=== PATIENT | female | born 1945 | race African-American/Black ===

== ENCOUNTER → 2016-10-24 | Outpatient (CLI) | payer MEDICARE, MEDICAID ==
[2016-10-24 17:05] LABS: ABSOLUTE BASOPHILS # (AUTO) 0.1 10^3/uL (0.0-0.2); ABSOLUTE EOSINOPHILS # (AUTO) 0.1 10^3/uL (0.0-0.6); ABSOLUTE LYMPHOCYTES (AUTO) 1.9 10^3/uL (0.5-4.7); ABSOLUTE MONOCYTES (AUTO) 0.9 10^3/uL (0.1-1.4); ABSOLUTE NEUT (AUTO) 6.6 10^3/uL (1.7-8.2); BASOPHILS % (AUTO) 0.6 % (0-2); EOSINOPHILS % (AUTO) 1.1 % (0-6); HEMATOCRIT 40.1 % (36.0-47.0); HEMOGLOBIN 13.4 g/dL (12.0-15.5); HGB HCT DIFFERENCE 0.1; LYMPHOCYTES % (AUTO) 20.1 % (13-45); MEAN CORPUSCULAR HEMOGLOBIN 29.7 pg (27.0-33.4); MEAN CORPUSCULAR HGB CONC 33.5 g/dL (32.0-36.0); MEAN CORPUSCULAR VOLUME 89 fl (80-97); MONOCYTES % (AUTO) 9.2 % (3-13); RED BLOOD COUNT 4.53 10^6/uL (3.72-5.28); RED CELL DISTRIBUTION WIDTH 16.5 % (11.5-14.0); WHITE BLOOD COUNT 9.6 10^3/uL (4.0-10.5)
[2016-10-24 17:23] LABS: ALANINE AMINOTRANSFERASE 19 U/L (9-52); ALBUMIN 3.4 g/dL (3.5-5.0); ALKALINE PHOSPHATASE 148 U/L (38-126); ANION GAP 9 (5-19); ASPARTATE AMINO TRANSFERASE 16 U/L (14-36); BILIRUBIN,DIRECT 0.3 mg/dL (0.0-0.4); BILIRUBIN,TOTAL 0.6 mg/dL (0.2-1.3); BLOOD UREA NITROGEN 14 mg/dL (7-20); CALCIUM 10.2 mg/dL (8.4-10.2); CARBON DIOXIDE 27 mmol/L (22-30); CHLORIDE 107 mmol/L (98-107); CHOLESTEROL 260.55 mg/dL (0-200); Direct HDL 50 mg/dL (>40); GLUCOSE 178 mg/dL (75-110); TRIGLYCERIDES 110 mg/dL (<150)
[2016-10-24 17:34] LABS: DIRECT LDL 179 mg/dL (<100)
== END ==
LOC: OD 15:38
PROVIDERS: ATTEND Internal Medicine
DX: I10 Essential (primary) hypertension (principal); I69.354 Hemiplegia and hemiparesis following cerebral infarction affecting left non-dominant side; E11.9 Type 2 diabetes mellitus without complications; Z79.899 Other long term (current) drug therapy
CPT/HCPCS: 36415; 80053; 80061; 85025

== ENCOUNTER 2016-10-26 20:48 | Emergency (ER) | payer MEDICARE, MEDICAID ==
--- NOTE | 2016-10-26 21:06 | ER Document Report ---
ED General - General Stated Complaint: ALTERED MENTAL STATUS Time Seen by Provider: 10/26/16 20:55 Notes: Patient is a 71-year-old female who comes emergency department by EMS for chief complaint of altered mental status that started this evening. Patient stopped talking normally, started staring out into space, and was confused for a brief period today. 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 She has not had a fever, vomiting although she is not eating much per daughter at bedside who is patient's primary caregiver. She is full code. TRAVEL OUTSIDE OF THE [place] IN LAST 30 DAYS: No - Related Data Allergies/Adverse Reactions: No Known Allergies Allergy (Verified 12/24/13 21:38) Past Medical History - General Information source: Patient, Relative - Social History Smoking Status: Never Smoker Frequency of alcohol use: None Drug Abuse: None Lives with: Family Family History: Reviewed & Not Pertinent - Past Medical History Cardiac Medical History: Reports: Hx Hypercholesterolemia, Hx Hypertension Neurological Medical History: Reports: Hx Cerebrovascular Accident Endocrine Medical History: Reports: Hx Diabetes Mellitus Type 2 Psychiatric Medical History: Denies: Hx Depression - Immunizations Hx Diphtheria, Pertussis, Tetanus Vaccination: Yes Review of Systems - Review of Systems Constitutional: No symptoms reported EENT: No symptoms reported Cardiovascular: No symptoms reported Respiratory: No symptoms reported Gastrointestinal: No symptoms reported Genitourinary: No symptoms reported Female Genitourinary: No symptoms reported Musculoskeletal: No symptoms reported Skin: No symptoms reported Hematologic/Lymphatic: No symptoms reported Neurological/Psychological: See HPI Physical Exam - Vital signs Vitals: Resp Pulse Ox 14 97 10/26/16 21:04 10/26/16 21:04 Interpretation: Normal - General General appearance: Appears well, Alert In distress: None - HEENT Head: Normocephalic, Atraumatic Eyes: Normal Extraocular movements intact: Yes Eyelashes: Normal Pupils: PERRL Mucous membranes: Normal Pharynx: Normal Neck: Normal - Respiratory Respiratory status: No respiratory distress Chest status: Nontender Breath sounds: Normal Chest palpation: Normal - Cardiovascular Rhythm: Regular Heart sounds: Normal auscultation Murmur: No - Abdominal Inspection: Normal Distension: No distension Bowel sounds: Normal Tenderness: Nontender Organomegaly: No organomegaly - Back Back: Normal, Nontender - Extremities General upper extremity: Normal inspection, Nontender, Normal ROM General lower extremity: Normal inspection, Nontender, Normal color, Normal ROM , Normal temperature, Normal weight bearing. No: Cynthia's sign - Neurological Neuro grossly intact: Yes Cognition: Normal Orientation: AAOx4 Charlotte Coma Scale Eye Opening: Spontaneous Charlotte Coma Scale Verbal: Oriented Chi Coma Scale Motor: Obeys Commands Chi Coma Scale Total: 15 Speech: Normal Motor strength normal: RUE, LLE, RLE. No: LUE Additional motor exam normals: Equal cardiovascular invasive specialist Sensory: Normal - Psychological Associated symptoms: Normal affect, Normal mood - Skin Skin Temperature: Warm Skin Moisture: Dry Skin Color: Normal Course - Re-evaluation Re-evalutation: On my examination patient is oriented, smiling, cooperative. She cooperates with a normal neurological exam other than having some muscular difficulties with her forearms and a left sided deficit which is chronic. She has a soft abdomen, clear lungs, no nuchal rigidity. She denies any current symptoms. CAT scan of the head was performed because of reported altered mental status, shows no acute abnormality. CBC, chemistry unremarkable. Urinalysis indicates urinary tract infection. No hypotension, fever, or leukocytosis. Patient does have some borderline tachycardia. I discussed admission to the hospital for transient altered mental status earlier and urinary tract infection with borderline tachycardia. I discussed all details of her workup and examination. Patient refuses. She states she feels great and she wants to go home. Family states that they want to take her home as well. They agree they will follow-up with her provider in 2-3 days, patient was given a dose of Rocephin here, they state that they will return if she becomes confused again, she developed a fever, or if any other concerning symptoms develop. Based on this patient was discharged home. - Vital Signs Vital signs: Temp Pulse Resp BP Pulse Ox 98.6 F 16 162/92 H 95 10/26/16 21:05 10/27/16 00:00 10/27/16 00:57 10/27/16 00:55 - Laboratory Result Diagrams: 10/26/16 21:19 10/26/16 21:19 Laboratory results interpreted by me: 10/26/16 10/26/16 10/26/16 21:19 21:19 21:25 RDW 16.3 H Potassium 3.5 L Chloride 110 H Est GFR ( Amer) 54 L Est GFR (Non-Af Amer) 45 L Glucose 153 H Albumin 3.0 L Urine Protein 100 H Ur Leukocyte Esterase LARGE H Discharge - Discharge Clinical Impression: Transient alteration of awareness Urinary tract infection Qualifiers: Urinary tract infection type: site unspecified Hematuria presence: without hematuria Qualified Code(s): N39.0 - Urinary tract infection, site not specified Condition: Stable Disposition: HOME, SELF-CARE Additional Instructions: The workup shows a urinary tract infection but no concerning abnormalities are noted otherwise. Give the antibiotics as directed. Follow-up with her provider in the next 2-3 days. Return to the emergency department for any concerning or worsening symptoms including fever, confusion, vomiting, etc. Prescriptions: Cephalexin Monohydrate [Keflex 500 mg Capsule] 500 mg PO BID #14 capsule Referrals: KARISSA ATKINSON MD [Primary Care Provider] - Follow up as needed
[2016-10-26 21:30] LABS: ABSOLUTE BASOPHILS # (AUTO) 0.1 10^3/uL (0.0-0.2); ABSOLUTE EOSINOPHILS # (AUTO) 0.1 10^3/uL (0.0-0.6); ABSOLUTE LYMPHOCYTES (AUTO) 2.1 10^3/uL (0.5-4.7); ABSOLUTE MONOCYTES (AUTO) 0.8 10^3/uL (0.1-1.4); ABSOLUTE NEUT (AUTO) 4.8 10^3/uL (1.7-8.2); BASOPHILS % (AUTO) 1.1 % (0-2); EOSINOPHILS % (AUTO) 0.9 % (0-6); HEMATOCRIT 36.2 % (36.0-47.0); HEMOGLOBIN 12.3 g/dL (12.0-15.5); HGB HCT DIFFERENCE 0.7; LYMPHOCYTES % (AUTO) 26.5 % (13-45); MEAN CORPUSCULAR HEMOGLOBIN 30.1 pg (27.0-33.4); MEAN CORPUSCULAR HGB CONC 33.9 g/dL (32.0-36.0); MEAN CORPUSCULAR VOLUME 89 fl (80-97); MONOCYTES % (AUTO) 10.1 % (3-13); RED BLOOD COUNT 4.08 10^6/uL (3.72-5.28); RED CELL DISTRIBUTION WIDTH 16.3 % (11.5-14.0); SEGMENTED NEUTROPHILS % (AUTO) 61.4 % (42-78); WHITE BLOOD COUNT 7.8 10^3/uL (4.0-10.5)
[2016-10-26 21:42] LABS: ALANINE AMINOTRANSFERASE 15 U/L (9-52); ALKALINE PHOSPHATASE 119 U/L (38-126); ANION GAP 11 (5-19); ASPARTATE AMINO TRANSFERASE 17 U/L (14-36); BILIRUBIN,DIRECT 0.4 mg/dL (0.0-0.4); BILIRUBIN,TOTAL 0.5 mg/dL (0.2-1.3); BLOOD UREA NITROGEN 19 mg/dL (7-20); CALCIUM 9.6 mg/dL (8.4-10.2); CARBON DIOXIDE 24 mmol/L (22-30); CHLORIDE 110 mmol/L (98-107); CREATINE KINASE 66 U/L (30-135); CREATININE RESULT 1.18 mg/dL (0.52-1.25); GLUCOSE 153 mg/dL (75-110); POTASSIUM 3.5 mmol/L (3.6-5.0); SODIUM 144.9 mmol/L (137-145); TOTAL PROTEIN 6.7 g/dL (6.3-8.2)
[2016-10-26 21:47] LABS: APPEARANCE,URINE CLOUDY; BILIRUBIN,URINE NEGATIVE (NEGATIVE); GLUCOSE, URINE NEGATIVE (NEGATIVE); KETONES,URINE NEGATIVE (NEGATIVE); LEUKOCYTE ESTERASE,URINE LARGE (NEGATIVE); NITRITE,URINE NEGATIVE (NEGATIVE); PROTEIN,URINE 100 mg/dL (NEGATIVE); UROBILINOGEN,URINE NEGATIVE mg/dL (<2.0)
[2016-10-26 21:54] LABS: CREATINE KINASE MB 0.76 ng/mL (<4.55); TROPONIN I 0.012 ng/mL
[2016-10-26 22:20] LABS: URINE BARBITURATES SCREEN NEGATIVE; URINE METHADONE SCREEN NEGATIVE; URINE OPIATES LOW NEGATIVE; URINE PHENCYCLIDINE SCREEN NEGATIVE
--- NOTE | 2016-10-26 22:25 | RADIOLOGY REPORT (SQ) ---
EXAM DESCRIPTION: CT HEAD WITHOUT COMPLETED DATE/TIME: 10/26/2016 10:01 pm REASON FOR STUDY: altered mental status COMPARISON: 06/03/2015 and 06/02/2015 TECHNIQUE: Axial images acquired through the brain without intravenous contrast. Images reviewed wi th bone, brain and subdural windows. Images stored on PACS. All CT scanners at this facility use dose modulation, iterative reconstruction, and/or weight based d osing when appropriate to reduce radiation dose to as low as reasonably achievable (ALARA). [facility]: Dose Right [facility]: CareDose [facility]: Dose Right [facility]: Teradose 4D [facility]: Smart Teneros RADIATION DOSE: Up-to-date CT equipment and radiation dose reduction techniques were employed. CTDIv ol: 64.6 mGy. DLP: 1163 mGy-cm.mGy. LIMITATIONS: None. FINDINGS: VENTRICLES: Prominent. CEREBRUM: No masses. No hemorrhage. No midline shift. Areas of low density in the white matter mos t likely due to chronic micro-vascular ischemic change. No evidence for acute infarction. CEREBELLUM: No masses. No hemorrhage. No alteration of density. No evidence for acute infarction. EXTRAAXIAL SPACES: Age-related involutional change. No fluid collections. No masses. ORBITS AND GLOBE: No intra- or extraconal masses. Normal contour of globe without masses. CALVARIUM: No fracture. PARANASAL SINUSES: No fluid or mucosal thickening. SOFT TISSUES: No mass or hematoma. OTHER: No other significant finding. IMPRESSION: CHRONIC CHANGES OF ATROPHY AND MICROVASCULAR ISCHEMIA. NO ACUTE PROCESS. TECHNICAL DOCUMENTATION: JOB ID: [id number] Quality ID # [id number]: Final reports with documentation of one or more dose reduction techniques (e.g., Au tomated exposure control, adjustment of the mA and/or kV according to patient size, use of iterative reconstruction technique) 2010 [employer]- All Rights Reserved
--- NOTE | 2016-10-26 22:35 | RADIOLOGY REPORT (SQ) ---
EXAM DESCRIPTION: CHEST SINGLE VIEW COMPLETED DATE/TIME: 10/26/2016 10:12 pm REASON FOR STUDY: AMS COMPARISON: 06/02/2015 EXAM PARAMETERS: NUMBER OF VIEWS: One view. TECHNIQUE: Single frontal radiographic view of the chest acquired. RADIATION DOSE: NA LIMITATIONS: None. FINDINGS: LUNGS AND PLEURA: No opacities, masses or pneumothorax. No pleural effusion. MEDIASTINUM AND HILAR STRUCTURES: No masses. Contour normal. HEART AND VASCULAR STRUCTURES: Heart normal in size. Normal vasculature. BONES: No acute findings. HARDWARE: None in the chest. OTHER: No other significant finding. IMPRESSION: NO ACUTE RADIOGRAPHIC FINDING IN THE CHEST. TECHNICAL DOCUMENTATION: JOB ID: [id number]
[2016-10-26] MEDS ORDERED: CEFTRIAXONE 1 GM/D5W RTU 50 ML IV ONE (22:44)
[2016-10-26] MEDS ORDERED: NORMAL SALINE 1000 ML 500 ML IV ONE (23:27)
--- NOTE | 2016-10-26 23:41 | EKG REPORT ---
SEVERITY:- ABNORMAL ECG - SINUS TACHYCARDIA PVC CONSIDER LEFT VENTRICULAR HYPERTROPHY : Confirmed by: Kasi Munroe MD 26-Oct-2016 23:40:27
[2016-10-27 03:23] VITALS: BP 162/92
== END 2016-10-27 01:00 | disposition home or self-care (01) ==
LOC: ER 20:48
DX: N39.0 Urinary tract infection, site not specified (principal); R40.4 Transient alteration of awareness; E11.9 Type 2 diabetes mellitus without complications; I10 Essential (primary) hypertension; E78.5 Hyperlipidemia, unspecified
CPT/HCPCS: 36415; 51701; 70450; 71010; 80053; 80307; 81001; 82550; 82553; 84484; 85025; 87040; 87086; 87088; 87186; 93005; 93010; 99285

== ENCOUNTER 2017-02-18 11:20 | Inpatient (IN) | payer MEDICARE, MEDICAID ==
[2017-02-18 11:54] LABS: ABSOLUTE BASOPHILS # (AUTO) 0.1 10^3/uL (0.0-0.2); ABSOLUTE LYMPHOCYTES (AUTO) 1.5 10^3/uL (0.5-4.7); ABSOLUTE MONOCYTES (AUTO) 0.9 10^3/uL (0.1-1.4); ABSOLUTE NEUT (AUTO) 8.4 10^3/uL (1.7-8.2); BASOPHILS % (AUTO) 0.8 % (0-2); EOSINOPHILS % (AUTO) 0.4 % (0-6); HEMATOCRIT 35.5 % (36.0-47.0); HEMOGLOBIN 11.8 g/dL (12.0-15.5); HGB HCT DIFFERENCE -0.1; LYMPHOCYTES % (AUTO) 13.8 % (13-45); MEAN CORPUSCULAR HEMOGLOBIN 28.5 pg (27.0-33.4); MEAN CORPUSCULAR HGB CONC 33.3 g/dL (32.0-36.0); MEAN CORPUSCULAR VOLUME 86 fl (80-97); MONOCYTES % (AUTO) 8.4 % (3-13); RED BLOOD COUNT 4.14 10^6/uL (3.72-5.28); RED CELL DISTRIBUTION WIDTH 16.2 % (11.5-14.0); SEGMENTED NEUTROPHILS % (AUTO) 76.6 % (42-78); WHITE BLOOD COUNT 10.9 10^3/uL (4.0-10.5)
[2017-02-18 12:00] LABS: PROTHROMBIN TIME 14.8 SEC (11.4-15.4)
[2017-02-18] MEDS ORDERED: NORMAL SALINE 1000 ML 1,000 ML IV PRN (12:03)
[2017-02-18 12:09] LABS: VENOUS BLOOD BASE EXCESS -2.7 mmol/L; VENOUS BLOOD HCO3 22.5 mmol/L (20-32); VENOUS BLOOD PCO2 40.7 mmHg (35-63); VENOUS BLOOD PH 7.36 (7.30-7.42)
[2017-02-18 12:17] LABS: ALANINE AMINOTRANSFERASE 26 U/L (9-52); ALBUMIN 3.1 g/dL (3.5-5.0); ALKALINE PHOSPHATASE 124 U/L (38-126); ANION GAP 13 (5-19); ASPARTATE AMINO TRANSFERASE 31 U/L (14-36); BILIRUBIN,DIRECT 0.5 mg/dL (0.0-0.4); BILIRUBIN,TOTAL 0.6 mg/dL (0.2-1.3); BLOOD UREA NITROGEN 28 mg/dL (7-20); CALCIUM 9.8 mg/dL (8.4-10.2); CARBON DIOXIDE 21 mmol/L (22-30); CHLORIDE 113 mmol/L (98-107); CREATININE RESULT 1.61 mg/dL (0.52-1.25); GLUCOSE 141 mg/dL (75-110); POTASSIUM 4.7 mmol/L (3.6-5.0); SODIUM 146.9 mmol/L (137-145); TOTAL PROTEIN 6.4 g/dL (6.3-8.2)
[2017-02-18 12:32] LABS: APPEARANCE,URINE CLEAR; BILIRUBIN,URINE NEGATIVE (NEGATIVE); GLUCOSE, URINE NEGATIVE (NEGATIVE); KETONES,URINE NEGATIVE (NEGATIVE); LEUKOCYTE ESTERASE,URINE NEGATIVE (NEGATIVE); NITRITE,URINE NEGATIVE (NEGATIVE); PROTEIN,URINE 100 mg/dL (NEGATIVE); URINE SPECIFIC GRAVITY 1.009
--- NOTE | 2017-02-18 12:36 | RADIOLOGY REPORT (SQ) ---
EXAM DESCRIPTION: CHEST SINGLE VIEW COMPLETED DATE/TIME: 02/18/2017 12:25 pm REASON FOR STUDY: bed 20 sepsis protocol COMPARISON: AP chest 10/26/2016, 06/02/2015 EXAM PARAMETERS: NUMBER OF VIEWS: One view. TECHNIQUE: Single frontal radiographic view of the chest acquired. RADIATION DOSE: NA LIMITATIONS: None. FINDINGS: LUNGS AND PLEURA: No opacities, masses or pneumothorax. No pleural effusion. MEDIASTINUM AND HILAR STRUCTURES: No masses. Contour normal. HEART AND VASCULAR STRUCTURES: Heart normal in size. Normal vasculature. BONES: No acute findings. HARDWARE: None in the chest. OTHER: No other significant finding. IMPRESSION: NO ACUTE RADIOGRAPHIC FINDING IN THE CHEST. TECHNICAL DOCUMENTATION: JOB ID: [id number] [employer]- All Rights Reserved
--- NOTE | 2017-02-18 13:35 | EKG REPORT ---
SEVERITY:- ABNORMAL ECG - SINUS TACHYCARDIA NONSPECIFIC T ABNORMALITIES, LATERAL LEADS : Confirmed by: Kasi Munroe MD 18-Feb-2017 13:34:59
[2017-02-18] MEDS ORDERED: ACETAMINOPHEN 650 MG SUPP.RECT PR ONE (13:55)
[2017-02-18] MEDS ORDERED: ONDANSETRON 4 MG TAB.RAPDIS PO PRN (13:59)
[2017-02-18] MEDS ORDERED: 1/2 NORMAL SALINE 1,000 ML IV PRN (13:59)
[2017-02-18] MEDS ORDERED: RINGERS SOLUTION,LACTATED 1,000 ML IV ONE (14:01)
--- NOTE | 2017-02-18 14:04 | ER Document Report ---
ED General - General Chief Complaint: Weakness Stated Complaint: WEAKNESS Time Seen by Provider: 02/18/17 11:42 Mode of Arrival: Medic Information source: Patient Notes: This is a 72-year-old female with a history of CVA (nonambulatory), hypertension brought in by EMS for decreased responsiveness, generalized weakness, not eating or drinking. Patient's family does report low-grade fevers. TRAVEL OUTSIDE OF THE [place] IN LAST 30 DAYS: No - HPI Onset: Last week Onset/Duration: Gradual Quality of pain: No pain Severity: None Pain Level: Denies Associated symptoms: Weakness. denies: Chills, Fever, Shortness of breath Exacerbated by: Denies Relieved by: Denies Similar symptoms previously: Yes Recently seen / treated by doctor: No - Related Data Allergies/Adverse Reactions: No Known Allergies Allergy (Verified 02/18/17 12:31) Home Medications: Current Home Medications Amlodipine/Valsartan/Hcthiazid [Ofosr-Loyyw-Cmkl 10-320-25 mg] 1 tab PO DAILY [History] Aspirin [Ecotrin 81 mg EC Tablet] 81 mg PO DAILY 02/18/17 [History] Atorvastatin Calcium [Lipitor 40 mg Tablet] 40 mg PO QHS 02/18/17 [History] Escitalopram Oxalate [Lexapro 10 mg Tablet] 10 mg PO DAILYP PRN 02/18/17 [ History] Insulin Detemir [Levemir Flextouch] 0 units SQ .SLIDING SCALE 02/18/17 [History] Sitagliptin Phos/Metformin HCl [Janumet 50-500 mg Tablet] 1 tab PO BID 02/18/17 [History] Past Medical History - General Information source: Patient - Social History Smoking Status: Never Smoker Cigarette use (# per day): No Chew tobacco use (# tins/day): No Frequency of alcohol use: None Drug Abuse: None Lives with: Family Family History: Reviewed & Not Pertinent Patient has suicidal ideation: No Patient has homicidal ideation: No - Past Medical History Cardiac Medical History: Reports: Hx Hypercholesterolemia, Hx Hypertension Neurological Medical History: Reports: Hx Cerebrovascular Accident Endocrine Medical History: Reports: Hx Diabetes Mellitus Type 2 Renal/ Medical History: Denies: Hx Peritoneal Dialysis Psychiatric Medical History: Denies: Hx Depression - Immunizations Hx Diphtheria, Pertussis, Tetanus Vaccination: Yes Review of Systems - Review of Systems Constitutional: denies: Chills, Fever EENT: No symptoms reported Cardiovascular: No symptoms reported Respiratory: No symptoms reported Gastrointestinal: See HPI Genitourinary: No symptoms reported Female Genitourinary: No symptoms reported Musculoskeletal: No symptoms reported Skin: No symptoms reported Hematologic/Lymphatic: No symptoms reported Neurological/Psychological: No symptoms reported Physical Exam - Vital signs Vitals: Resp 32 H 02/18/17 11:28 Notes: Physical exam: GENERAL: 72-year-old female, will answer questions, appears generalized weak and debilitated, she does appear dehydrated HEAD: Atraumatic, normocephalic. EYES: Pupils equal round and reactive to light, extraocular movements intact, sclera anicteric, conjunctiva are normal. ENT: TMs normal, nares patent, oropharynx clear without exudates. Dry mucous membranes. NECK: Normal range of motion, supple without obvious mass or JVD. LUNGS: Breath sounds clear to auscultation bilaterally and equal. No wheezes rales or rhonchi. HEART: Regular rate and rhythm without murmurs, rubs or gallops. ABDOMEN: Soft, normoactive bowel sounds. No tenderness to palpation. No guarding, no rebound. No masses appreciated. EXTREMITIES: Normal range of motion, no pitting or edema. No clubbing or cyanosis. NEUROLOGICAL: Patient is at her baseline mentally as per family. She will answer questions. She does appear generalized weak. She does have contractures from an old stroke. SKIN: Patient does have 2 grade 1 sacral decubiti with no foul smell, discharge. Patient does have an old healed decubiti over the left greater trochanter Course - Vital Signs Vital signs: Temp Pulse Resp BP Pulse Ox 97.8 F 100 18 133/71 H 96 02/18/17 16:13 02/18/17 16:38 02/18/17 16:13 02/18/17 16:13 02/18/17 16:13 - Laboratory Result Diagrams: 02/18/17 11:40 02/18/17 11:40 Laboratory results interpreted by me: 02/18/17 02/18/17 02/18/17 11:40 11:40 12:00 WBC 10.9 H Hgb 11.8 L Hct 35.5 L RDW 16.2 H Absolute Neutrophils 8.4 H Sodium 146.9 H Chloride 113 H Carbon Dioxide 21 L BUN 28 H Creatinine 1.61 H Est GFR ( Amer) 38 L Est GFR (Non-Af Amer) 31 L Glucose 141 H POC Glucose Direct Bilirubin 0.5 H Albumin 3.1 L Urine Protein 100 H Urine Urobilinogen 2.0 H 02/18/17 12:28 WBC Hgb Hct RDW Absolute Neutrophils Sodium Chloride Carbon Dioxide BUN Creatinine Est GFR ( Amer) Est GFR (Non-Af Amer) Glucose POC Glucose 121 H Direct Bilirubin Albumin Urine Protein Urine Urobilinogen - Diagnostic Test Radiology reviewed: Image reviewed, Reports reviewed - Chest x-ray shows no pneumonia Discharge - Discharge Clinical Impression: Acute kidney injury, Dehydration Condition: Stable Disposition: ADMITTED INPATIENT Admitting Provider: Hospitalist - Elieser/leticia Unit Admitted: Telemetry
[2017-02-18] MEDS ORDERED: ENOXAPARIN SODIUM INJ 30 MG/0.3 ML DISP.SYRIN SUBCUT ONE (15:00)
--- NOTE | 2017-02-18 16:18 | HISTORY AND PHYSICAL E ---
History and Physical NAME: WALLY CONKLIN : 1945 AGE: 72Y ADMITTED: 02/18/2017 ROOM: 537 PRIMARY CARE PROVIDER: Dr. Chatterjee CHIEF COMPLAINT: Unusual behavior. HISTORY OF PRESENT ILLNESS: The patient is an extremely debilitated 72-year-old -[place] female that was brought into the emergency department by her attentive daughters with a chief complaint of odd behavior. Apparently the patient is more awake and alert than usual; however, she was found by her family to be more lethargic, having very little oral intake and fevers. The patient has had a cerebrovascular accident which has left her extremely debilitated, aphasic, and the patient is pretty much completely bed bound. Upon presentation to the emergency department, the patient was found to have a white count of 10.9, a creatinine of 1.6, sodium of 146, and the patient was referred to the hospitalist for admission and management. The patient is unable to provide any history whatsoever so history has been obtained from the patient's daughters who are in agreement to admission. PAST MEDICAL HISTORY: Is remarkable for: 1. Hyperlipidemia. 2. Hypertension. 3. Cerebrovascular disease. 4. Cerebrovascular accident. 5. Diabetes mellitus, type 2. PAST SURGICAL HISTORY: Negative. ALLERGIES: No known drug allergies. MEDICATIONS: Home medications include: 1. Amlodipine/valsartan/hydrochlorothiazide combo pill. 2. Megace 40 mg p.o. daily. SOCIAL HISTORY: The patient currently resides at home with her daughters who are her full-time caregivers. The patient does have a remote history of tobacco use but quit smoking almost 40 years ago. The patient has had no history of alcohol use or illicit drug use. FAMILY MEDICAL HISTORY: The patient has a daughter with hypertension and diabetes. The patient does have a brother with a permanent pacemaker. The patient's mother of a stroke in her 80s. The patient's father is of uncertain natural causes. REVIEW OF SYSTEMS: A review of systems is unable to be obtained given the patient's mental status. PHYSICAL EXAMINATION: GENERAL: On examination, the patient is a frail, chronically ill-appearing 72-year-old -[place] female who will awaken but goes right back to sleep. She does not appear to be in any acute distress, appears quite comfortable. VITAL SIGNS: As follows: Temperature is 99.2, pulse 104, respirations 19, blood pressure is 125/84, oxygen saturation is 98% on room air. SKIN: Warm and dry. No rash. She is not diaphoretic. HEENT: Pupils are equal, round, reactive to light and accommodation. Conjunctiva is actually pale. Sclera is nonicteric. There are no mouth lesions. Tongue is midline. The patient has some moist mucous membranes. No overt lymphadenopathy. Unable to palpate for thyromegaly. CARDIOVASCULAR: Heart is regular, is no murmur or rub. CHEST: Clear, symmetrical, unlabored. ABDOMEN: Soft, nontender, nondistended. Bowel sounds are present. No palpable organomegaly. BACK: No CVA tenderness or sacral edema. EXTREMITIES: No clubbing, cyanosis, edema or peripheral signs of embolization, +1 pedal pulses noted bilaterally. PSYCHIATRIC: Unable to fully assess. DIAGNOSTICS: Lab values are as follows: Hematology obtained on 02/18/2017: WBCs are 10.9, hemoglobin is 11.8, hematocrit is 35.5, platelet count is 322,000. Chemistry obtained on 02/18/2017: Sodium is 146, potassium 4.7, chloride is 113, carbon dioxide 21, BUN is 28, creatinine is 1.61, glucose 141, calcium is 9.8, bilirubin is 0.6, AST 31, ALT is 26, alk phos 124. Microbiology: Blood cultures obtained on 02/18/2017 are pending. Urine culture obtained on 02/18/2017 is pending. IMPRESSION AND PLAN: 1. Acute encephalopathy. Multiple differentials do exist, including UTI or underlying infectious process. The patient has been cultured and chest x-ray is unremarkable, but will follow cultures. 2. Acute renal failure. The patient's creatinine is 1.6. Baseline is in the 0.9 range. This could be multifocal; however, will hydrate the patient and follow chemistries in the a.m. 3. Hypernatremia secondary to the above. 4. Metabolic acidosis, most likely due to acute kidney injury. Will continue to gently hydrate and follow. 5. Cerebrovascular disease. If the patient is on aspirin therapy, will resume this. If not, will proceed with aspirin therapy. DISPOSITION: THE PATIENT IS A FULL CODE. Pending the patient's symptomatology and diagnostic findings, will re-evaluate in the a.m. Time spent on this admission, including assessment/plan, physical examination, patient education, family meeting and review of previous and current medical records, is 50 minutes. DICTATING PHYSICIAN: JESSICA VELÁSQUEZ NP [id number] PHY#: [id number] ID: [id number] JOB#: [id number] ACCT: [id number] cc:ROSY CANO M.D. >
[2017-02-18] MEDS: DOCUSATE SODIUM 100 MG CAPSULE PO SCH (17:28)
[2017-02-18] MEDS: ACETAMINOPHEN 325 MG TABLET PO PRN (19:47)
[2017-02-19 07:27] LABS: HEMATOCRIT 28.9 % (36.0-47.0); HEMOGLOBIN 9.9 g/dL (12.0-15.5); HGB HCT DIFFERENCE 0.8; MEAN CORPUSCULAR HEMOGLOBIN 29.2 pg (27.0-33.4); MEAN CORPUSCULAR HGB CONC 34.1 g/dL (32.0-36.0); MEAN CORPUSCULAR VOLUME 86 fl (80-97); RED BLOOD COUNT 3.37 10^6/uL (3.72-5.28); RED CELL DISTRIBUTION WIDTH 16.2 % (11.5-14.0); WHITE BLOOD COUNT 10.1 10^3/uL (4.0-10.5)
[2017-02-19 07:43] LABS: ANION GAP 9 (5-19); BLOOD UREA NITROGEN 24 mg/dL (7-20); CALCIUM 8.8 mg/dL (8.4-10.2); CARBON DIOXIDE 19 mmol/L (22-30); CHLORIDE 117 mmol/L (98-107); CREATININE RESULT 1.17 mg/dL (0.52-1.25); GLUCOSE 81 mg/dL (75-110); MAGNESIUM 1.5 mg/dL (1.6-2.3); POTASSIUM 4.2 mmol/L (3.6-5.0); SODIUM 144.9 mmol/L (137-145)
[2017-02-19] MEDS ORDERED: ESCITALOPRAM OXALATE 10 MG TABLET PO PRN (07:47)
[2017-02-19] MEDS ORDERED: MAGNESIUM OXIDE 400 MG TABLET PO SCH (10:00)
[2017-02-19] MEDS ORDERED: ENOXAPARIN SODIUM INJ 30 MG/0.3 ML DISP.SYRIN SUBCUT SCH (10:00)
[2017-02-19] MEDS ORDERED: ASPIRIN 81 MG TABLET, ENT COATED PO SCH (10:00)
[2017-02-19] MEDS: DOCUSATE SODIUM 100 MG CAPSULE PO SCH (10:35)
[2017-02-19] MEDS: ACETAMINOPHEN 325 MG TABLET PO PRN (11:21)
[2017-02-19] MEDS ORDERED: FLUCONAZOLE 100 MG TABLET PO ONE (13:59)
[2017-02-19] MEDS ORDERED: BISACODYL 10 MG SUPP.RECT PR SCH (14:00)
--- NOTE | 2017-02-19 14:38 | DISCHARGE SUMMARY E ---
Discharge Summary NAME: WALLY CONKLIN : 1945 AGE: 72Y ADMITTED: 02/18/2017 DISCHARGED: 02/19/2017 CODE STATUS: FULL CODE. PRIMARY CARE PROVIDER: Dr. Chatterjee DISCHARGE DIAGNOSES: 1. Vaginal yeast infection. 2. Constipation. 3. Acute encephalopathy secondary to #1 which is resolved. 4. Acute renal failure. The patient's creatinine is now back to baseline. 5. Hypernatremia secondary to the above is improved. 6. Cerebrovascular disease. 7. Chronic debility. DISCHARGE MEDICATIONS: 1. Amlodipine/valsartan/hydrochlorothiazide 10/320/25 one tablet p.o. daily. 2. Aspirin 81 mg p.o. daily. 3. Lipitor 40 mg p.o. at hour of sleep. 4. Lexapro 10 mg p.o. daily. 5. Levemir as directed. 6. Janumet 50/500 one tablet p.o. b.i.d. DIET: As tolerated. ACTIVITY: As tolerated. DIAGNOSTICS: Lab values are as follow: Hematology obtained on 02/19/2017: WBCs are 10.1, hemoglobin is 9.9, hematocrit is 28.9, platelet count is 259,000. Coagulation obtained on 02/18/2017: PT is 14.8, INR is 1.09. Blood gas obtained on 02/18/2017: The pH is 7.36, pCO2 is 40.7, bicarb is 22.5. Chemistry obtained on 02/19/2017: Sodium is 144, potassium 4.2, chloride is 117, carbon dioxide 19, BUN 24, creatinine is 1.17, glucose 81, lactic acid is 1.8, calcium is 8.8, magnesium is 1.5, bilirubin is 0.6, AST 31, ALT is 26, alk phos 124, total protein is 6.4, albumin 3.1 Urinalysis obtained on 02/18/2017: Color yellow, appearance clear, pH 6.0, specific gravity 1.009, protein 100, glucose negative, ketones negative, occult blood negative, nitrate negative, bilirubin negative, urobilinogen is 2.0, leukocyte esterase is negative, WBC 0, RBC 1, ascorbic acid negative. Microbiology: Blood cultures obtained on 02/18/2017: Three bottles reveal no growth. One bottle did reveal gram positive cocci which is felt to be contaminate. Urine culture obtained on 02/18/2017 reveals no growth. Chest x-ray obtained on 02/18/2017 reveals no acute radiographic finding of the chest. EKG obtained on 02/18/2017 reveals sinus tach. PHYSICAL EXAMINATION: GENERAL: On examination, the patient is a frail, chronically ill appearing, 72-year-old -[place] female who is awake and alert. She is oriented to person, place, time, and situation. She is verbal, conversational but a little slow. She does not appear to be in acute distress. VITAL SIGNS: Temperature 99.0, pulse 96, respirations 18, blood pressure 120/62, oxygen saturation is 95% on room air. SKIN: Warm and dry. No rash. She is not diaphoretic. HEENT: Pupils equal, round, reactive to light and accommodation. Conjunctivae are pink. No JVP. CARDIOVASCULAR: Heart is regular with no murmur or rub. CHEST: Clear, symmetrical, unlabored. ABDOMEN: Soft, nontender, nondistended. BACK: No CVA tenderness or sacral edema. EXTREMITIES: The patient is contracted. HISTORY OF PRESENT ILLNESS: The patient is a 72-year-old -[place]ish female with a past medical history of known cerebrovascular disease and CVA leaving her in a chronically debilitated state. The patient was brought into the emergency department by her family who is very much attentive given the fact the patient is less awake and alert than unusual, leaving her almost lethargic at times. The patient was having very little oral intake and was having fever. The patient was unable to provide any history and the patient for the most part was aphasic at the time of presentation. The patient is pretty much bed bound. Upon presentation to the emergency department, the patient was found to have a white count of 10.9, a creatinine of 1.6, sodium of 146 and the patient was referred to the hospitalist for admission and management. HOSPITAL COURSE: The patient was admitted to continuous telemetry unit. The patient was gently hydrated overnight and the patient's creatinine did return to its baseline. The patient's white count went down to 10.1 and the patient's mentation improved tremendously. The patient actually is conversational today upon rounds, which is a significant improvement compared to yesterday. The patient is eating her meals without issue. The patient has not had any fevers. The patient's urine culture did not reveal any growth. A chest x-ray was not suggestive of infectious process. The patient had 1 bottle of a set of blood cultures that revealed gram positive cocci in cluster. It was felt to be mostly likely contaminant as the patient has no obvious source for this and the patient has had symptom resolution without antibiotic treatment. The patient was noted to have significant constipation and vaginal yeast infection. The patient was treated for both with was felt to be the source of her illness since no other sources could be noted. Family feels the patient is back to baseline and are eager for discharge. DISCHARGE PLANNING: The patient is advised to followup with primary care provider as needed. Time spent on this discharge including assessment, plan, physical examination, attempt at patient education, and family meeting is 25 minutes. DICTATING PHYSICIAN: JESSICA VELÁSQUEZ NP [id number] PHY#: [id number] ID: [id number] JOB#: [id number] ACCT: [id number] cc:ROSY CANO M.D., MICHAEL NP > MTDD
[2017-02-19 15:21] VITALS: BP 125/63
[2017-02-19] MEDS ORDERED: ATORVASTATIN CALCIUM 40 MG TABLET PO SCH (22:00)
== END 2017-02-19 15:51 | disposition home health service (06) | DRG 757 ==
LOC: ER 11:20 → EH 14:17 → 5 15:42
PROVIDERS: ADMIT Hospitalist; ATTEND Hospitalist
DX: B37.3 Candidiasis of vulva and vagina (principal); G93.40 Encephalopathy, unspecified; N17.9 Acute kidney failure, unspecified; E87.0 Hyperosmolality and hypernatremia; K59.00 Constipation, unspecified; I67.9 Cerebrovascular disease, unspecified; R53.81 Other malaise; E78.5 Hyperlipidemia, unspecified; I10 Essential (primary) hypertension; E11.9 Type 2 diabetes mellitus without complications; Z79.82 Long term (current) use of aspirin; Z79.4 Long term (current) use of insulin; Z79.899 Other long term (current) drug therapy; Z86.73 Personal history of transient ischemic attack (TIA), and cerebral infarction without residual deficits; Z87.891 Personal history of nicotine dependence; Z83.3 Family history of diabetes mellitus; Z82.49 Family history of ischemic heart disease and other diseases of the circulatory system
CPT/HCPCS: 36415; 51702; 71010; 80048; 80053; 81001; 82803; 82962; 83605; 83735; 85025; 85027; 85610; 87040; 87077; 87086; 87186; 93005; 93010; 99285; J1650; J7120

== ENCOUNTER 2017-02-26 12:35 | Inpatient (IN) | payer MEDICARE, MEDICAID ==
[2017-02-26] MEDS ORDERED: NORMAL SALINE 1000 ML 1,000 ML IV ONE (12:57)
[2017-02-26] MEDS ORDERED: NORMAL SALINE 500 ML IV ONE (12:57)
--- NOTE | 2017-02-26 13:05 | ER Document Report ---
ED General Pain - General Stated Complaint: ALTERED MENTAL STATUS Time Seen by Provider: 02/26/17 12:46 Notes: Dehydration TRAVEL OUTSIDE OF THE [place] IN LAST 30 DAYS: No - HPI Notes: 72 years old female with a history of CVAs in the past, bedbound, contracted upper limbs and lower limbs, seen here couple of days ago for dehydration. Brought back again today with decreased p.o. intake and no urinary output for last 24 hours. No history could be obtained from patient due to her mental status. Advanced dementia and noncommunicative. No history of any fever chills or other constitutional symptoms - Related Data Allergies/Adverse Reactions: No Known Allergies Allergy (Verified 02/18/17 12:31) Past Medical History - General Information source: Relative, POA - Power of Fiber Analyst - Social History Smoking Status: Never Smoker Cigarette use (# per day): No Chew tobacco use (# tins/day): No Family History: Reviewed & Not Pertinent - Past Medical History Cardiac Medical History: Reports: Hx Hypercholesterolemia, Hx Hypertension Neurological Medical History: Reports: Hx Cerebrovascular Accident Endocrine Medical History: Reports: Hx Diabetes Mellitus Type 2 Renal/ Medical History: Denies: Hx Peritoneal Dialysis Psychiatric Medical History: Denies: Hx Depression - Immunizations Hx Diphtheria, Pertussis, Tetanus Vaccination: Yes Review of Systems - Review of Systems Notes: Review of system otherwise unremarkable Physical Exam - Vital signs Interpretation: Hypotensive - General In distress: Moderate - Cardiovascular Heart sounds: Normal auscultation, S1 appreciated, S2 appreciated Murmur: No - Abdominal Distension: No distension Bowel sounds: Normal Tenderness: Nontender - Extremities General upper extremity: No: Normal inspection - All 4 extremities are contracted and stiff - Neurological Neuro grossly intact: No - Patient is fairly demented alert but not oriented. - Skin Notes: Dry skin, with loss of turgor Course - Re-evaluation Re-evalutation: 02/26/17 16:25 Discussed the case with hospitalist, and being admitted. Family was told about the admission. - Laboratory Result Diagrams: 02/26/17 14:20 02/26/17 14:20 Laboratory results interpreted by me: 02/26/17 02/26/17 02/26/17 14:20 14:20 15:35 WBC 16.4 H RDW 16.3 H Seg Neutrophils % 88.6 H Lymphocytes % 5.6 L Absolute Neutrophils 14.5 H Sodium 149.7 H Potassium 5.2 H Chloride 112 H Carbon Dioxide 21 L BUN 27 H Creatinine 1.29 H Est GFR ( Amer) 49 L Est GFR (Non-Af Amer) 41 L Glucose 148 H Calcium 10.5 H Alkaline Phosphatase 143 H Albumin 3.3 L Urine Protein 30 H Urine Ketones TRACE H Discharge - Discharge Clinical Impression: Dehydration, Hypernatremia, Renal insufficiency, Leukocytosis Condition: Fair Disposition: ADMITTED INPATIENT Admitting Provider: Brayan Referrals: KARISSA ATKINSON MD [Primary Care Provider] - Follow up as needed
[2017-02-26 14:35] LABS: ABSOLUTE LYMPHOCYTES (AUTO) 0.9 10^3/uL (0.5-4.7); ABSOLUTE MONOCYTES (AUTO) 0.9 10^3/uL (0.1-1.4); ABSOLUTE NEUT (AUTO) 14.5 10^3/uL (1.7-8.2); BASOPHILS % (AUTO) 0.3 % (0-2); HEMOGLOBIN 12.7 g/dL (12.0-15.5); HGB HCT DIFFERENCE 0.1; LYMPHOCYTES % (AUTO) 5.6 % (13-45); MEAN CORPUSCULAR HEMOGLOBIN 29.1 pg (27.0-33.4); MEAN CORPUSCULAR HGB CONC 33.5 g/dL (32.0-36.0); MEAN CORPUSCULAR VOLUME 87 fl (80-97); MONOCYTES % (AUTO) 5.5 % (3-13); RED BLOOD COUNT 4.38 10^6/uL (3.72-5.28); RED CELL DISTRIBUTION WIDTH 16.3 % (11.5-14.0); SEGMENTED NEUTROPHILS % (AUTO) 88.6 % (42-78); WHITE BLOOD COUNT 16.4 10^3/uL (4.0-10.5)
[2017-02-26 14:53] LABS: ALANINE AMINOTRANSFERASE 28 U/L (9-52); ALBUMIN 3.3 g/dL (3.5-5.0); ALKALINE PHOSPHATASE 143 U/L (38-126); ANION GAP 17 (5-19); ASPARTATE AMINO TRANSFERASE 25 U/L (14-36); BILIRUBIN,DIRECT 0.4 mg/dL (0.0-0.4); BILIRUBIN,TOTAL 0.6 mg/dL (0.2-1.3); BLOOD UREA NITROGEN 27 mg/dL (7-20); CALCIUM 10.5 mg/dL (8.4-10.2); CARBON DIOXIDE 21 mmol/L (22-30); CHLORIDE 112 mmol/L (98-107); CREATININE RESULT 1.29 mg/dL (0.52-1.25); GLUCOSE 148 mg/dL (75-110); POTASSIUM 5.2 mmol/L (3.6-5.0); SODIUM 149.7 mmol/L (137-145); TOTAL PROTEIN 6.6 g/dL (6.3-8.2)
[2017-02-26 15:56] LABS: APPEARANCE,URINE CLEAR; BILIRUBIN,URINE NEGATIVE (NEGATIVE); GLUCOSE, URINE NEGATIVE (NEGATIVE); KETONES,URINE TRACE mg/dL (NEGATIVE); LEUKOCYTE ESTERASE,URINE NEGATIVE (NEGATIVE); NITRITE,URINE NEGATIVE (NEGATIVE); PROTEIN,URINE 30 mg/dL (NEGATIVE); UROBILINOGEN,URINE NEGATIVE mg/dL (<2.0)
--- NOTE | 2017-02-26 16:14 | RADIOLOGY REPORT (SQ) ---
EXAM DESCRIPTION: CHEST SINGLE VIEW COMPLETED DATE/TIME: 02/26/2017 3:52 pm REASON FOR STUDY: cough COMPARISON: 02/18/2017 EXAM PARAMETERS: NUMBER OF VIEWS: One view. TECHNIQUE: Single frontal radiographic view of the chest acquired. RADIATION DOSE: NA LIMITATIONS: None. FINDINGS: LUNGS AND PLEURA: Mild hyperexpansion of the lungs. No infiltrate or effusion no mass. MEDIASTINUM AND HILAR STRUCTURES: No masses. Contour normal. HEART AND VASCULAR STRUCTURES: Heart normal in size. Normal vasculature. BONES: No acute findings. HARDWARE: None in the chest. OTHER: No other significant finding. IMPRESSION: Chronic lung changes with no acute intracranial pathology. TECHNICAL DOCUMENTATION: JOB ID: [id number] [employer]- All Rights Reserved
[2017-02-26] MEDS ORDERED: ZOLPIDEM TARTRATE 5 MG TABLET PO PRN (17:04)
[2017-02-26] MEDS ORDERED: OXYCODONE-ACETAMINOPHEN 5-325 MG TABLET PO PRN (17:04)
[2017-02-26] MEDS ORDERED: ONDANSETRON HCL INJ/PF 4 MG/2 ML SDV IV PRN (17:04)
[2017-02-26] MEDS ORDERED: DEXTROSE 40% GEL 15 GM TUBE PO PRN ×2 (17:16)
[2017-02-26] MEDS ORDERED: INSULIN REG, HUMAN 100 UNIT/ML 3 ML VIAL (PYX) SUBCUT PRN (17:16)
[2017-02-26] MEDS ORDERED: DEXTROSE 50%-WATER 25 GM/50 ML DISP.SYRIN IV PRN ×2 (17:16)
[2017-02-26] MEDS ORDERED: GLUCAGON,HUMAN RECOMB 1 MG INJ IM PRN (17:16)
--- NOTE | 2017-02-26 18:03 | PDOC H&P ---
History of Present Illness Admission Date/PCP: KARISSA ATKINSON MD Admission date: 2016 History of Present Illness: WALLY CONKLIN is a 72 year old female was brought in by family because patient was weak. Family admits that patient had been having poor oral intake. Also they have noticed that patient had been losing weight. Patient states that this been going on for the past 3 months. Patient was recently discharged from this facility when she was treated due to urinary tract infection. Patient was also dehydrated at that point in time. Patient had a stroke several years ago with resultant left sided weakness. Patient at the present time is bedbound due to contractures. Patient denies any pain, shortness of breath, fever or chills. Patient does suffer from constipation quite frequently and requires manual disimpaction. Patient is not on a bowel regimen. Patient does have a history of diabetes and hypertension. Family relates that patient has not been evaluated through a colonoscopy. Patient was evaluated in the emergency room and sodium was found to be elevated and there was a mild elevation of potassium. It was noted that her white blood cell count was elevated however again patient had did not have any fever and there was no source that could be accounted for this finding. Our service was contacted and prompted to admit under observation status Past Medical History Cardiac Medical History: Reports: Hyperlipidema, Hypertension Pulmonary Medical History: Reports: None EENT Medical History: Reports: None Neurological Medical History: Reports: Ischemic CVA Endocrine Medical History: Reports: Diabetes Mellitus Type 2 Malignancy Medical History: Reports: None GI Medical History: Reports: None Musculoskeltal Medical History: Reports: None Psychiatric Medical History: Reports: Depression Traumatic Medical History: Reports: None Hematology: Reports: None Infectious Medical History: Reports: None Past Surgical History Past Surgical History: Reports: None Social History Information Source: Patient Lives with: Family Smoking Status: Never Smoker Frequency of Alcohol Use: None Hx Recreational Drug Use: No Hx Prescription Drug Abuse: No - Advance Directive Resuscitation Status: Full Code Family History Family History: Hypertension Parental Family History Reviewed: Yes Children Family History Reviewed: Yes Sibling(s) Family History Reviewed.: Yes Medication/Allergy Home Medications: Amlodipine/Valsartan/Hcthiazid [Ukxyg-Ecxbg-Yjat 10-320-25 mg] 1 tab PO DAILY Aspirin [Aspirin 81 mg Chewable Tablet] 81 mg PO DAILY 02/26/17 Atorvastatin Calcium [Lipitor 40 mg Tablet] 40 mg PO QHS 02/26/17 Escitalopram Oxalate [Lexapro 10 mg Tablet] 10 mg PO DAILYP PRN 02/26/17 Insulin Detemir [Levemir Flextouch] 0 unit SQ .SLIDING SCALE 02/26/17 Sitagliptin Phos/Metformin HCl [Janumet 50-500 mg Tablet] 1 tab PO BID 02/26/17 Allergies/Adverse Reactions: No Known Allergies Allergy (Verified 02/18/17 12:31) Review of Systems Constitutional: PRESENT: anorexia, weakness. ABSENT: chills, night sweats Eyes: ABSENT: visual disturbances Ears: ABSENT: hearing changes Cardiovascular: ABSENT: chest pain, dyspnea on exertion Gastrointestinal: PRESENT: constipation. ABSENT: nausea, vomiting Genitourinary: ABSENT: dysuria Musculoskeletal: PRESENT: deformity, muscle weakness. ABSENT: joint swelling Neurological: PRESENT: focal weakness Psychiatric: PRESENT: other - insomnia Physical Exam General appearance: PRESENT: no acute distress, thin, other - malnourished Head exam: PRESENT: atraumatic, normocephalic Eye exam: PRESENT: conjunctiva pink, EOMI, PERRLA Ear exam: PRESENT: normal external ear exam, TM's normal bilaterally Mouth exam: PRESENT: moist Neck exam: PRESENT: full ROM. ABSENT: JVD, tenderness, thyromegaly Respiratory exam: PRESENT: clear to auscultation mayank Cardiovascular exam: PRESENT: RRR. ABSENT: diastolic murmur, systolic murmur Vascular exam: PRESENT: normal capillary refill GI/Abdominal exam: PRESENT: normal bowel sounds, soft. ABSENT: distended, tenderness Rectal exam: PRESENT: deferred Extremities exam: PRESENT: other - Bilateral lower extremities contractures. ABSENT: joint swelling, pedal edema Neurological exam: PRESENT: alert, oriented to person, oriented to place, oriented to time Psychiatric exam: PRESENT: depressed Skin exam: PRESENT: dry, pallor Results Laboratory Results: 02/26/17 14:20 02/26/17 14:20 02/26/17 02/26/17 02/26/17 14:20 14:20 15:35 WBC 16.4 H RBC 4.38 Hgb 12.7 Hct 38.0 MCV 87 MCH 29.1 MCHC 33.5 RDW 16.3 H Plt Count 366 Seg Neutrophils % 88.6 H Lymphocytes % 5.6 L Monocytes % 5.5 Eosinophils % 0.0 Basophils % 0.3 Absolute Neutrophils 14.5 H Absolute Lymphocytes 0.9 Absolute Monocytes 0.9 Absolute Eosinophils 0.0 Absolute Basophils 0.0 Sodium 149.7 H Potassium 5.2 H Chloride 112 H Carbon Dioxide 21 L Anion Gap 17 BUN 27 H Creatinine 1.29 H Est GFR ( Amer) 49 L Est GFR (Non-Af Amer) 41 L Glucose 148 H Calcium 10.5 H Total Bilirubin 0.6 AST 25 ALT 28 Alkaline Phosphatase 143 H Total Protein 6.6 Albumin 3.3 L Urine Color YELLOW Urine Appearance CLEAR Urine pH 6.0 Ur Specific Fluker 1.010 Urine Protein 30 H Urine Glucose (UA) NEGATIVE Urine Ketones TRACE H Urine Blood NEGATIVE Urine Nitrite NEGATIVE Ur Leukocyte Esterase NEGATIVE Ur Squamous Epith Cells RARE Impressions: Chest X-Ray 02/26/17 15:04 IMPRESSION: Chronic lung changes with no acute intracranial pathology. Assessment & Plan - Diagnosis (1) Diabetes mellitus type 2 in nonobese Is this a current diagnosis for this admission?: Yes Plan: Patient will be placed on Humalog sliding scale and will request basic glucose before meals and at bedtime. Will request hemoglobin A1c since concerned that possibly weight loss may relate to uncontrolled diabetes (2) Dehydration Is this a current diagnosis for this admission?: Yes Plan: Concern that problem may be related to uncontrolled diabetes and on top of that antihypertensive regimen contains HCTZ. Since hypernatremic will place on D5 water and will trend (3) Hypernatremia Is this a current diagnosis for this admission?: Yes Plan: Will place on D5 water and will trend (4) Leukocytosis Qualifiers: Leukocytosis type: unspecified Qualified Code(s): D72.829 - Elevated white blood cell count, unspecified Is this a current diagnosis for this admission?: Yes Plan: No obvious sign of infectious source. There is a possibility that this may relate to dehydration (5) Renal insufficiency Is this a current diagnosis for this admission?: Yes Plan: Patient does suffer from chronic kidney disease stage III will trend (6) Acute CVA (cerebrovascular accident) Is this a current diagnosis for this admission?: Yes Plan: Patient has significant disability since of the present time has contractures. Will request for her to be evaluated by speech therapy to verify that there are no swallowing difficulties that may be interfering with her nutritional support (7) Constipation Qualifiers: Constipation type: unspecified constipation type Qualified Code(s): K59.00 - Constipation, unspecified Is this a current diagnosis for this admission?: Yes Plan: Patient has experienced significant weight loss and had never had a colonoscopy. Will order a CT of the abdomen and pelvis and stool for occult blood (8) Severe malnutrition Is this a current diagnosis for this admission?: Yes Plan: Hemoglobin A1c requested as there is a possibility that her weight loss may relate to uncontrolled diabetes the other possibility is a malignancy. I discussed with patient's oldest daughter plan of action which included ordering a CT of the abdomen and pelvis in order to exclude the possibility of malignancy - Time Time Spent: 50 to 70 Minutes Medications reviewed and adjusted accordingly: Yes Anticipated discharge: Home with Homehealth Within: within 24 hours - Inpatient Certification Based on my medical assessment, after consideration of the patient's comorbidities, presenting symptoms, or acuity I expect that the services needed warrant INPATIENT care.: No I certify that my determination is in accordance with my understanding of Medicare's requirements for reasonable and necessary INPATIENT services [42 CFR 412.3e].: Yes Medical Necessity: Need Close Monitoring Due to Risk of Patient Decompensation
[2017-02-26] MEDS: DEXTROSE 5%-WATER 1000 ML 1,000 ML IV PRN (19:08)
--- NOTE | 2017-02-26 20:49 | RADIOLOGY REPORT (SQ) ---
EXAM DESCRIPTION: CT ABD/PELVIS WITH IV ORAL COMPLETED DATE/TIME: 02/26/2017 8:36 pm REASON FOR STUDY: constipation COMPARISON: None. TECHNIQUE: CT scan of the abdomen and pelvis performed using helical scanning technique with dynamic intravenous contrast injection. With oral contrast. Images reviewed with lung, soft tissue, and bon e windows. Reconstructed coronal and sagittal MPR images reviewed. Delayed images for evaluation of t he urinary system also acquired. All images stored on PACS. All CT scanners at this facility use dose modulation, iterative reconstruction, and/or weight based d osing when appropriate to reduce radiation dose to as low as reasonably achievable (ALARA). [facility]: Dose Right [facility]: CareDose [facility]: Dose Right [facility]: Teradose 4D [facility]: [employer] CONTRAST TYPE AND DOSE: contrast/concentration: Isovue 370.00 mg/ml; Total Contrast Delivered: 98.0 ml; Total Saline Delivered: 45.0 ml RENAL FUNCTION: Creatinine 1.29 RADIATION DOSE: . LIMITATIONS: None. FINDINGS: LOWER CHEST: No significant findings. No nodules or infiltrates. LIVER: Normal size. 2 cm hepatic cyst. No dilated ducts. SPLEEN: Normal size. No focal lesions. PANCREAS: No masses. No significant calcifications. No adjacent inflammation or peripancreatic fluid collections. Pancreatic duct not dilated. GALLBLADDER: Not definitely identified. ADRENAL GLANDS: No significant masses or asymmetry. RIGHT KIDNEY AND URETER: No solid masses. No significant calcifications. No hydronephrosis or hyd roureter. LEFT KIDNEY AND URETER: No solid masses. No significant calcifications. No hydronephrosis or hydr oureter. AORTA AND VESSELS: No aneurysm. No dissection. Renal arteries, SMA, celiac without stenosis. RETROPERITONEUM: No retroperitoneal adenopathy, hemorrhage or masses. BOWEL AND PERITONEAL CAVITY: No masses or inflammatory changes. No free fluid or peritoneal masses. APPENDIX: Not visualized. PELVIS: Massive bladder distention. Measures 17 cm. ABDOMINAL WALL: No masses. No hernias. BONES: No significant or acute findings. OTHER: No other significant finding. IMPRESSION: Massive bladder distention. No hydronephrosis. TECHNICAL DOCUMENTATION: JOB ID: [id number] Quality ID # [id number]: Final reports with documentation of one or more dose reduction techniques (e.g., Au tomated exposure control, adjustment of the mA and/or kV according to patient size, use of iterative reconstruction technique) 2010 [employer]- All Rights Reserved
[2017-02-27] MEDS: HYDRALAZINE HCL 25 MG TABLET PO SCH ×4 (01:29→22:13)
[2017-02-27] MEDS: METOCLOPRAMIDE HCL INJ/PF 10 MG/2 ML SDV IV SCH ×3 (01:29→11:19)
[2017-02-27] MEDS: DOCUSATE SODIUM 100 MG CAPSULE PO SCH ×3 (01:45→18:16)
[2017-02-27] MEDS: MIRTAZAPINE 15 MG TABLET PO SCH ×2 (02:10→22:19)
[2017-02-27] MEDS: HEPARIN SOD (PORCINE) 5,000 UNIT/ML 1 ML SYRINGE SUBCUT SCH ×4 (02:14→22:12)
[2017-02-27] MEDS: DEXTROSE 5%-WATER 1000 ML 1,000 ML IV PRN (06:27)
[2017-02-27 08:54] LABS: ABSOLUTE LYMPHOCYTES (AUTO) 1.4 10^3/uL (0.5-4.7); ABSOLUTE MONOCYTES (AUTO) 0.9 10^3/uL (0.1-1.4); ABSOLUTE NEUT (AUTO) 8.2 10^3/uL (1.7-8.2); BASOPHILS % (AUTO) 0.4 % (0-2); EOSINOPHILS % (AUTO) 0.2 % (0-6); HEMATOCRIT 29.6 % (36.0-47.0); HGB HCT DIFFERENCE 0.4; LYMPHOCYTES % (AUTO) 13.4 % (13-45); MEAN CORPUSCULAR HEMOGLOBIN 28.6 pg (27.0-33.4); MEAN CORPUSCULAR HGB CONC 33.6 g/dL (32.0-36.0); MEAN CORPUSCULAR VOLUME 85 fl (80-97); MONOCYTES % (AUTO) 8.6 % (3-13); RED BLOOD COUNT 3.48 10^6/uL (3.72-5.28); RED CELL DISTRIBUTION WIDTH 15.7 % (11.5-14.0); SEGMENTED NEUTROPHILS % (AUTO) 77.4 % (42-78); WHITE BLOOD COUNT 10.6 10^3/uL (4.0-10.5)
[2017-02-27 09:02] LABS: ANION GAP 11 (5-19); BLOOD UREA NITROGEN 29 mg/dL (7-20); CALCIUM 8.7 mg/dL (8.4-10.2); CARBON DIOXIDE 20 mmol/L (22-30); CHLORIDE 103 mmol/L (98-107); GLUCOSE 218 mg/dL (75-110); MAGNESIUM 1.7 mg/dL (1.6-2.3); SODIUM 133.7 mmol/L (137-145)
[2017-02-27 09:04] LABS: POTASSIUM 4.1 mmol/L (3.6-5.0)
[2017-02-27] MEDS: ASPIRIN 325 MG TABLET PO SCH (11:19)
[2017-02-27] MEDS: INSULIN LISPRO 100 UNIT/ML 3 ML VIAL SUBCUT PRN ×2 (18:15→22:12)
[2017-02-27] MEDS: TAMSULOSIN HCL 0.4 MG CAP.SR.24H PO SCH (18:15)
[2017-02-27] MEDS: ACETAMINOPHEN 325 MG TABLET PO PRN (22:35)
--- NOTE | 2017-02-28 03:18 | PDOC PROGRESS REPORT ---
Subjective Progress Note for:: 02/27/17 Subjective:: No complints voiced by daughter. Nurse reported urinary retention and confirmed by daughter. Patient still having poor oral intake. Was not able to be evalauted by speech due to somnolence Reason For Visit: HYPERNATREMIA Physical Exam Vital Signs: Temp Pulse Resp BP Pulse Ox 98.2 F 101 H 18 108/48 L 96 02/27/17 22:59 02/27/17 22:59 02/27/17 22:59 02/27/17 22:59 02/27/17 22:59 Intake & Output 02/26/17 02/27/17 02/28/17 06:59 06:59 06:59 Intake Total 0 259 Output Total 0 Balance 0 259 Weight 110 kg 49.895 kg General appearance: PRESENT: no acute distress, cooperative, thin Head exam: PRESENT: atraumatic, normocephalic Eye exam: PRESENT: PERRLA Mouth exam: PRESENT: moist Neck exam: PRESENT: full ROM. ABSENT: JVD Respiratory exam: PRESENT: clear to auscultation mayank Cardiovascular exam: PRESENT: RRR. ABSENT: diastolic murmur, systolic murmur Vascular exam: PRESENT: normal capillary refill GI/Abdominal exam: PRESENT: normal bowel sounds, soft. ABSENT: tenderness Extremities exam: PRESENT: other Musculoskeletal exam: PRESENT: tenderness - present Neurological exam: PRESENT: alert, awake Psychiatric exam: PRESENT: depressed Skin exam: PRESENT: other - stage II buttock decubiti ulcer noted Results Laboratory Results: 02/27/17 08:20 02/27/17 08:20 02/27/17 02/27/17 02/27/17 08:20 08:20 08:20 WBC 10.6 H RBC 3.48 L Hgb 10.0 L D Hct 29.6 L MCV 85 MCH 28.6 MCHC 33.6 RDW 15.7 H Plt Count 295 Seg Neutrophils % 77.4 Lymphocytes % 13.4 Monocytes % 8.6 Eosinophils % 0.2 Basophils % 0.4 Absolute Neutrophils 8.2 Absolute Lymphocytes 1.4 Absolute Monocytes 0.9 Absolute Eosinophils 0.0 Absolute Basophils 0.0 Sodium 133.7 L Potassium 4.1 D Chloride 103 Carbon Dioxide 20 L Anion Gap 11 BUN 29 H Creatinine 1.10 Est GFR ( Amer) 59 L Est GFR (Non-Af Amer) 49 L Glucose 218 H Calcium 8.7 Magnesium 1.7 Cancelled Impressions: Abdomen/Pelvis CT 02/26/17 00:00 IMPRESSION: Massive bladder distention. No hydronephrosis. Chest X-Ray 02/26/17 15:04 IMPRESSION: Chronic lung changes with no acute intracranial pathology. Assessment & Plan - Diagnosis (1) Diabetes mellitus type 2 in nonobese Is this a current diagnosis for this admission?: Yes Plan: Continue present treament. A1C good (2) Dehydration Is this a current diagnosis for this admission?: Yes Plan: Major issue is poo oral intake. CT of abdomen and a1C normal (3) Hypernatremia Is this a current diagnosis for this admission?: Yes Plan: Discontinue fluids and trend. May recur (4) Leukocytosis Qualifiers: Leukocytosis type: unspecified Qualified Code(s): D72.829 - Elevated white blood cell count, unspecified Is this a current diagnosis for this admission?: Yes Plan: Resolved. Due to dehydration (5) Renal insufficiency Is this a current diagnosis for this admission?: Yes Plan: Appears to be acute on chronic. (6) Acute CVA (cerebrovascular accident) Is this a current diagnosis for this admission?: Yes Plan: Patient has significant disability since of the present time has contractures. Await for speech therapy input since may need PEG (7) Constipation Qualifiers: Constipation type: unspecified constipation type Qualified Code(s): K59.00 - Constipation, unspecified Is this a current diagnosis for this admission?: Yes Plan: Improved with reglan. Continue with bowel regimen except reglan (8) Severe malnutrition Is this a current diagnosis for this admission?: Yes Plan: Multifactorial. Continue remeron (9) Depression Qualifiers: Depression Type: unspecified Qualified Code(s): F32.9 - Major depressive disorder, single episode, unspecified Is this a current diagnosis for this admission?: Yes Plan: Continue lexapro and remeron (10) Decubital ulcer Qualifiers: Pressure ulcer location: buttock Pressure ulcer stage: stage 2 Laterality : unspecified laterality Qualified Code(s): L89.302 - Pressure ulcer of unspecified buttock, stage 2 Is this a current diagnosis for this admission?: Yes Plan: Appears to be healing well. (11) Urinary retention Is this a current diagnosis for this admission?: Yes Plan: Daughter admits is ongoing. Made aware need to catherize prn and daughter is concerned of inflicting pain. She is amenable to be taught how to do it. (12) HTN (hypertension) Qualifiers: Hypertension type: essential hypertension Qualified Code(s): I10 - Essential (primary) hypertension Is this a current diagnosis for this admission?: Yes Plan: added norvasc - Time Time Spent with patient: 15-24 minutes Medications reviewed and adjusted accordingly: Yes Anticipated discharge: Home Within: within 24 hours - Inpatient Certification Based on my medical assessment, after consideration of the patient's comorbidities, presenting symptoms, or acuity I expect that the services needed warrant INPATIENT care.: No Medical Necessity: Need Close Monitoring Due to Risk of Patient Decompensation
[2017-02-28] MEDS: HEPARIN SOD (PORCINE) 5,000 UNIT/ML 1 ML SYRINGE SUBCUT SCH ×3 (05:05→21:45)
[2017-02-28] MEDS: HYDRALAZINE HCL 25 MG TABLET PO SCH (05:12)
[2017-02-28 05:26] LABS: ANION GAP 7 (5-19); BLOOD UREA NITROGEN 34 mg/dL (7-20); CALCIUM 8.4 mg/dL (8.4-10.2); CARBON DIOXIDE 20 mmol/L (22-30); CHLORIDE 103 mmol/L (98-107); CREATININE RESULT 1.31 mg/dL (0.52-1.25); GLUCOSE 80 mg/dL (75-110); POTASSIUM 4.1 mmol/L (3.6-5.0); SODIUM 130.1 mmol/L (137-145)
[2017-02-28] MEDS: ACETAMINOPHEN 325 MG TABLET PO PRN (05:35)
[2017-02-28] MEDS ORDERED: NORMAL SALINE 1000 ML 1,000 ML IV PRN (08:29)
[2017-02-28] MEDS ORDERED: HYDRALAZINE HCL 25 MG TABLET PO SCH (08:33)
[2017-02-28] MEDS: ASPIRIN 325 MG TABLET PO SCH (09:17)
[2017-02-28] MEDS: DOCUSATE SODIUM 100 MG CAPSULE PO SCH ×2 (09:17→17:03)
[2017-02-28] MEDS ORDERED: OXYCODONE-ACETAMINOPHEN 5-325 MG TABLET PO ONE (11:55)
[2017-02-28] MEDS ORDERED: MORPHINE SULFATE 10 MG/ML INJ IV ONE (12:00)
--- NOTE | 2017-02-28 13:51 | PDOC PROGRESS REPORT ---
Subjective Progress Note for:: 02/28/17 Subjective:: Oldest daughter reports noticing swelling localized to the right thigh. Also concerned that patient appeared to be very tender in that area. Youngest sister had stayed overnight and related that patient required catheterization due to urinary retention. Current findings as well as changing patient to inpatient status were discussed initially with youngest daughter. When her sister came in updated the same. I had approached about the possibility of day considering a PEG tube however they declined this avenue since invasive. Primary concern during my second visit to the room is the newly found swelling to the right thigh. Nurses were contacted and they were unaware about this issue ROS Patient complains to pain to right eye when touch in that area otherwise unable to retrieve any other concerns All significant laboratories and diagnostics have been reviewed Reason For Visit: HYPERNATREMIA Physical Exam Vital Signs: Temp Pulse Resp BP Pulse Ox 98.2 F 101 H 18 108/48 L 96 02/27/17 22:59 02/27/17 22:59 02/27/17 22:59 02/27/17 22:59 02/27/17 22:59 Intake & Output 02/27/17 02/28/17 03/01/17 06:59 06:59 06:59 Intake Total 0 559 Output Total 0 700 Balance 0 -141 Weight 110 kg 50.5 kg General appearance: PRESENT: cooperative, thin, other - Cachectic Head exam: PRESENT: atraumatic, normocephalic Eye exam: PRESENT: EOMI, PERRLA Ear exam: PRESENT: normal external ear exam Mouth exam: PRESENT: moist Teeth exam: PRESENT: edentulous Neck exam: PRESENT: full ROM. ABSENT: JVD, tenderness Respiratory exam: PRESENT: clear to auscultation mayank Cardiovascular exam: PRESENT: RRR. ABSENT: diastolic murmur, systolic murmur GI/Abdominal exam: PRESENT: soft, tenderness - Mostly localized around the right and left inguinal area. ABSENT: guarding Extremities exam: PRESENT: other - There is some swelling localized to the medial aspect of right thigh. Musculoskeletal exam: PRESENT: deformity, other - Bilateral contractures noted Neurological exam: PRESENT: alert, awake Skin exam: PRESENT: normal color Results Laboratory Results: 02/27/17 08:20 02/28/17 04:49 02/27/17 02/27/17 02/27/17 08:20 08:20 08:20 WBC 10.6 H RBC 3.48 L Hgb 10.0 L D Hct 29.6 L MCV 85 MCH 28.6 MCHC 33.6 RDW 15.7 H Plt Count 295 Seg Neutrophils % 77.4 Lymphocytes % 13.4 Monocytes % 8.6 Eosinophils % 0.2 Basophils % 0.4 Absolute Neutrophils 8.2 Absolute Lymphocytes 1.4 Absolute Monocytes 0.9 Absolute Eosinophils 0.0 Absolute Basophils 0.0 Sodium 133.7 L Potassium 4.1 D Chloride 103 Carbon Dioxide 20 L Anion Gap 11 BUN 29 H Creatinine 1.10 Est GFR ( Amer) 59 L Est GFR (Non-Af Amer) 49 L Glucose 218 H Calcium 8.7 Magnesium 1.7 Cancelled 02/28/17 04:49 WBC RBC Hgb Hct MCV MCH MCHC RDW Plt Count Seg Neutrophils % Lymphocytes % Monocytes % Eosinophils % Basophils % Absolute Neutrophils Absolute Lymphocytes Absolute Monocytes Absolute Eosinophils Absolute Basophils Sodium 130.1 L Potassium 4.1 Chloride 103 Carbon Dioxide 20 L Anion Gap 7 BUN 34 H Creatinine 1.31 H Est GFR ( Amer) 48 L Est GFR (Non-Af Amer) 40 L Glucose 80 Calcium 8.4 Magnesium Impressions: Abdomen/Pelvis CT 02/26/17 00:00 IMPRESSION: Massive bladder distention. No hydronephrosis. Chest X-Ray 02/26/17 15:04 IMPRESSION: Chronic lung changes with no acute intracranial pathology. Assessment & Plan - Diagnosis (1) Diabetes mellitus type 2 in nonobese Is this a current diagnosis for this admission?: Yes Plan: Continue present treament. A1C good (2) Dehydration Is this a current diagnosis for this admission?: Yes Plan: Major issue is poor oral intake. CT of abdomen and a1C normal. Restart IV fluids. Patient was seen by speech therapy and to change diet to soft mechanical (3) Hypernatremia Is this a current diagnosis for this admission?: Yes Plan: Resolve and now hyponatremic. To place him fluids (4) Leukocytosis Qualifiers: Leukocytosis type: unspecified Qualified Code(s): D72.829 - Elevated white blood cell count, unspecified Is this a current diagnosis for this admission?: Yes Plan: To order a stat CBC in view of swelling of her right thigh. Order CT of the right lower extremity (5) Renal insufficiency Is this a current diagnosis for this admission?: Yes Plan: Appears to be acute on chronic. There has been worsening and will start fluids. To trend (6) Acute CVA (cerebrovascular accident) Is this a current diagnosis for this admission?: Yes Plan: Patient has significant disability since of the present time has contractures. Has a very supportive family and they go to extremes to protect their mother since want to avoid at all cost to inflict pain on her (7) Constipation Qualifiers: Constipation type: unspecified constipation type Qualified Code(s): K59.00 - Constipation, unspecified Is this a current diagnosis for this admission?: Yes Plan: Continue with bowel regimen except reglan (8) Severe malnutrition Is this a current diagnosis for this admission?: Yes Plan: Multifactorial. Continue remeron (9) Depression Qualifiers: Depression Type: unspecified Qualified Code(s): F32.9 - Major depressive disorder, single episode, unspecified Is this a current diagnosis for this admission?: Yes Plan: Continue lexapro and remeron (10) Decubital ulcer Qualifiers: Pressure ulcer location: buttock Pressure ulcer stage: stage 2 Laterality : unspecified laterality Qualified Code(s): L89.302 - Pressure ulcer of unspecified buttock, stage 2 Is this a current diagnosis for this admission?: Yes Plan: Appears to be healing well. (11) Urinary retention Is this a current diagnosis for this admission?: Yes Plan: Daughters admit is ongoing. Made aware need to catherize prn and daughter is concerned of inflicting pain. She is amenable to be taught how to do it. (12) HTN (hypertension) Qualifiers: Hypertension type: essential hypertension Qualified Code(s): I10 - Essential (primary) hypertension Is this a current diagnosis for this admission?: Yes Plan: Decrease hydralazine in the event patient is cardiorenal (13) Acute thigh pain Qualifiers: Laterality: right Qualified Code(s): M79.651 - Pain in right thigh Is this a current diagnosis for this admission?: Yes Plan: The is appearance of swelling may relate to muscular skeletal strain. Patient has severe muscular atrophy due to stroke and being bedridden. However we will go ahead and order a CT scan over that area. Oldest sister is actually demanding to be investigated since patient is in pain. - Time Time Spent with patient: 15-24 minutes Medications reviewed and adjusted accordingly: Yes Anticipated discharge: Home Within: within 72 hours - Inpatient Certification Based on my medical assessment, after consideration of the patient's comorbidities, presenting symptoms, or acuity I expect that the services needed warrant INPATIENT care.: Yes I certify that my determination is in accordance with my understanding of Medicare's requirements for reasonable and necessary INPATIENT services [42 CFR 412.3e].: Yes Medical Necessity: Need For IV Fluids, Other
[2017-02-28] MEDS: HYDRALAZINE HCL 10 MG TABLET PO SCH ×2 (14:15→21:16)
[2017-02-28] MEDS: INSULIN LISPRO 100 UNIT/ML 3 ML VIAL SUBCUT PRN (16:25)
[2017-02-28] MEDS: TAMSULOSIN HCL 0.4 MG CAP.SR.24H PO SCH (17:03)
[2017-02-28 19:58] LABS: ABSOLUTE BASOPHILS # (AUTO) 0.2 10^3/uL (0.0-0.2); ABSOLUTE EOSINOPHILS # (AUTO) 0.3 10^3/uL (0.0-0.6); ABSOLUTE LYMPHOCYTES (AUTO) 2.4 10^3/uL (0.5-4.7); ABSOLUTE MONOCYTES (AUTO) 0.9 10^3/uL (0.1-1.4); ABSOLUTE NEUT (AUTO) 5.9 10^3/uL (1.7-8.2); BASOPHILS % (AUTO) 1.7 % (0-2); EOSINOPHILS % (AUTO) 3.2 % (0-6); HEMATOCRIT 27.9 % (36.0-47.0); HEMOGLOBIN 9.1 g/dL (12.0-15.5); HGB HCT DIFFERENCE -0.6; LYMPHOCYTES % (AUTO) 24.7 % (13-45); MEAN CORPUSCULAR HEMOGLOBIN 28.4 pg (27.0-33.4); MEAN CORPUSCULAR HGB CONC 32.7 g/dL (32.0-36.0); MEAN CORPUSCULAR VOLUME 87 fl (80-97); MONOCYTES % (AUTO) 9.5 % (3-13); RED BLOOD COUNT 3.21 10^6/uL (3.72-5.28); RED CELL DISTRIBUTION WIDTH 16.2 % (11.5-14.0); SEGMENTED NEUTROPHILS % (AUTO) 60.9 % (42-78); WHITE BLOOD COUNT 9.6 10^3/uL (4.0-10.5)
[2017-02-28] MEDS: MIRTAZAPINE 15 MG TABLET PO SCH (21:52)
[2017-03-01] MEDS: MORPHINE SULFATE 10 MG/ML INJ IV PRN ×2 (03:47→10:53)
[2017-03-01 05:31] LABS: ABSOLUTE EOSINOPHILS # (AUTO) 0.2 10^3/uL (0.0-0.6); ABSOLUTE LYMPHOCYTES (AUTO) 1.1 10^3/uL (0.5-4.7); ABSOLUTE MONOCYTES (AUTO) 0.7 10^3/uL (0.1-1.4); ABSOLUTE NEUT (AUTO) 7.5 10^3/uL (1.7-8.2); BASOPHILS % (AUTO) 0.2 % (0-2); EOSINOPHILS % (AUTO) 1.6 % (0-6); HEMATOCRIT 28.4 % (36.0-47.0); HEMOGLOBIN 9.7 g/dL (12.0-15.5); HGB HCT DIFFERENCE 0.7; LYMPHOCYTES % (AUTO) 11.7 % (13-45); MEAN CORPUSCULAR VOLUME 85 fl (80-97); MONOCYTES % (AUTO) 7.1 % (3-13); RED BLOOD COUNT 3.33 10^6/uL (3.72-5.28); RED CELL DISTRIBUTION WIDTH 15.4 % (11.5-14.0); SEGMENTED NEUTROPHILS % (AUTO) 79.4 % (42-78); WHITE BLOOD COUNT 9.5 10^3/uL (4.0-10.5)
[2017-03-01 05:53] LABS: ALANINE AMINOTRANSFERASE 34 U/L (9-52); ALBUMIN 2.6 g/dL (3.5-5.0); ALKALINE PHOSPHATASE 103 U/L (38-126); ANION GAP 9 (5-19); ASPARTATE AMINO TRANSFERASE 25 U/L (14-36); BILIRUBIN,DIRECT 0.4 mg/dL (0.0-0.4); BILIRUBIN,TOTAL 0.4 mg/dL (0.2-1.3); BLOOD UREA NITROGEN 32 mg/dL (7-20); CALCIUM 8.4 mg/dL (8.4-10.2); CARBON DIOXIDE 19 mmol/L (22-30); CHLORIDE 105 mmol/L (98-107); CREATININE RESULT 1.34 mg/dL (0.52-1.25); GLUCOSE 97 mg/dL (75-110); POTASSIUM 3.8 mmol/L (3.6-5.0); SODIUM 133.1 mmol/L (137-145); TOTAL PROTEIN 5.9 g/dL (6.3-8.2)
[2017-03-01] MEDS: HYDRALAZINE HCL 10 MG TABLET PO SCH ×3 (06:12→22:08)
[2017-03-01] MEDS: HEPARIN SOD (PORCINE) 5,000 UNIT/ML 1 ML SYRINGE SUBCUT SCH ×3 (06:12→22:08)
[2017-03-01] MEDS: ASPIRIN 325 MG TABLET PO SCH (09:48)
[2017-03-01] MEDS: DOCUSATE SODIUM 100 MG CAPSULE PO SCH ×2 (09:49→18:22)
--- NOTE | 2017-03-01 10:42 | RADIOLOGY REPORT (SQ) ---
EXAM DESCRIPTION: U/S EXTREMITY NONVASCULAR COMP COMPLETED DATE/TIME: 03/01/2017 10:35 am REASON FOR STUDY: Swelling of right thigh E08.3219 DIABETES WITH MILD NONP RTNOP WITH MACULAR EDEMA , U E08.22 DIABETES DUE TO UNDRL COND W DIABETIC CHRONIC KIDNEY COMPARISON: None. TECHNIQUE: Dynamic and static grayscale images acquired of the localized site of clinical concern an d recorded on PACS. Additional selected color Doppler and spectral images recorded. SITE OF CONCERN: Medial left thigh. LIMITATIONS: None. FINDINGS: SKIN AND SUBCUTANEOUS TISSUES: Diffuse edema in the subcutaneous soft tissues. No masses or focal fluid collections. DEEP SOFT TISSUES/MUSCLES: No masses. No fluid collections. No edema. OTHER: No other significant finding. IMPRESSION: SUBCUTANEOUS EDEMA. NO MASSES OR FOCAL FLUID COLLECTIONS. TECHNICAL DOCUMENTATION: JOB ID: [id number] [employer]- All Rights Reserved
--- NOTE | 2017-03-01 17:40 | PDOC PROGRESS REPORT ---
Subjective Progress Note for:: 03/01/17 Subjective:: Oldest daughter reports the patient still having pain in her right thigh. Patient still having to have in and out cath. Daughter also states that after having a family meeting they would like for patient to get a PEG tube. ROS Patient complains to pain to right eye when touch in that area otherwise unable to retrieve any other concerns All significant laboratories and diagnostics have been reviewed Reason For Visit: STU,HYPONATREMIA Physical Exam Vital Signs: Temp Pulse Resp BP Pulse Ox 98.8 F 101 H 18 109/57 L 97 03/01/17 00:00 03/01/17 00:00 03/01/17 00:00 03/01/17 00:00 03/01/17 00:00 Intake & Output 02/27/17 02/28/17 03/01/17 06:59 06:59 06:59 Intake Total 0 559 847 Output Total 0 700 0 Balance 0 -141 847 Weight 110 kg 50.5 kg General appearance: PRESENT: cooperative, mild distress, thin Head exam: PRESENT: atraumatic, normocephalic Eye exam: PRESENT: EOMI, PERRLA Ear exam: PRESENT: normal external ear exam Mouth exam: PRESENT: moist, neck supple Neck exam: PRESENT: full ROM. ABSENT: JVD, tenderness Respiratory exam: PRESENT: clear to auscultation mayank Cardiovascular exam: PRESENT: RRR. ABSENT: diastolic murmur, systolic murmur Vascular exam: PRESENT: normal capillary refill GI/Abdominal exam: PRESENT: guarding, hypoactive bowel sounds, tenderness - In pelvic area right higher than left. ABSENT: distended, firm Neurological exam: PRESENT: other - somnolent Psychiatric exam: PRESENT: depressed Skin exam: PRESENT: pallor Results Laboratory Results: 02/28/17 14:13 02/28/17 04:49 02/28/17 02/28/17 02/28/17 04:49 04:49 14:13 WBC 9.6 RBC 3.21 L Hgb 9.1 L Hct 27.9 L MCV 87 MCH 28.4 MCHC 32.7 RDW 16.2 H Plt Count 261 Seg Neutrophils % 60.9 Lymphocytes % 24.7 Monocytes % 9.5 Eosinophils % 3.2 Basophils % 1.7 Absolute Neutrophils 5.9 Absolute Lymphocytes 2.4 Absolute Monocytes 0.9 Absolute Eosinophils 0.3 Absolute Basophils 0.2 Sodium 130.1 L Potassium 4.1 Chloride 103 Carbon Dioxide 20 L Anion Gap 7 BUN 34 H Creatinine 1.31 H Est GFR ( Amer) 48 L Est GFR (Non-Af Amer) 40 L Glucose 80 Calcium 8.4 C-Reactive Protein 69.2 H Impressions: Abdomen/Pelvis CT 02/26/17 00:00 IMPRESSION: Massive bladder distention. No hydronephrosis. Chest X-Ray 02/26/17 15:04 IMPRESSION: Chronic lung changes with no acute intracranial pathology. Assessment & Plan - Diagnosis (1) Diabetes mellitus type 2 in nonobese Is this a current diagnosis for this admission?: Yes Plan: Continue present treatment. A1C good (2) Dehydration Is this a current diagnosis for this admission?: Yes Plan: Continue intravenous fluids. Consult surgery for PEG. (3) Hypernatremia Is this a current diagnosis for this admission?: Yes Plan: Resolved and now hyponatremic. (4) Leukocytosis Qualifiers: Leukocytosis type: unspecified Qualified Code(s): D72.829 - Elevated white blood cell count, unspecified Is this a current diagnosis for this admission?: Yes Plan: Resolved. To order sonogram of right thigh (5) Renal insufficiency Is this a current diagnosis for this admission?: Yes Plan: Appears to be acute on chronic. There has been worsening. Continue fluids. Trend (6) Acute CVA (cerebrovascular accident) Is this a current diagnosis for this admission?: Yes Plan: Patient has significant disability since of the present time has contractures. Has a very supportive family and they go to extremes to protect their mother since want to avoid at all cost to inflict pain on her (7) Constipation Qualifiers: Constipation type: unspecified constipation type Qualified Code(s): K59.00 - Constipation, unspecified Is this a current diagnosis for this admission?: Yes Plan: Continue with bowel regimen. (8) Severe malnutrition Is this a current diagnosis for this admission?: Yes Plan: Multifactorial. Continue remeron. Family agreeable for PEG (9) Depression Qualifiers: Depression Type: unspecified Qualified Code(s): F32.9 - Major depressive disorder, single episode, unspecified Is this a current diagnosis for this admission?: Yes Plan: Continue lexapro and remeron (10) Decubital ulcer Qualifiers: Pressure ulcer location: buttock Pressure ulcer stage: stage 2 Laterality : unspecified laterality Qualified Code(s): L89.302 - Pressure ulcer of unspecified buttock, stage 2 Is this a current diagnosis for this admission?: Yes Plan: Appears to be healing well. (11) Urinary retention Is this a current diagnosis for this admission?: Yes Plan: Daughters admit is ongoing. Family requesting a galeas (12) HTN (hypertension) Qualifiers: Hypertension type: essential hypertension Qualified Code(s): I10 - Essential (primary) hypertension Is this a current diagnosis for this admission?: Yes Plan: Decrease hydralazine in the event patient is cardiorenal (13) Acute thigh pain Qualifiers: Laterality: right Qualified Code(s): M79.651 - Pain in right thigh Is this a current diagnosis for this admission?: Yes Plan: Discussed with radiologist and recommends to repeat CT of the abdomen and pelvis with IV contrast and order a venous sonogram of right lower extremity - Time Time Spent with patient: 15-24 minutes Medications reviewed and adjusted accordingly: Yes Anticipated discharge: Home - Unknown at this time - Inpatient Certification Based on my medical assessment, after consideration of the patient's comorbidities, presenting symptoms, or acuity I expect that the services needed warrant INPATIENT care.: Yes I certify that my determination is in accordance with my understanding of Medicare's requirements for reasonable and necessary INPATIENT services [42 CFR 412.3e].: Yes Medical Necessity: Need For IV Fluids, Need for Pain Control
[2017-03-01] MEDS: TAMSULOSIN HCL 0.4 MG CAP.SR.24H PO SCH (18:22)
--- NOTE | 2017-03-01 21:54 | RADIOLOGY REPORT (SQ) ---
EXAM DESCRIPTION: VENOUS UNILATERAL LOWER COMPLETED DATE/TIME: 03/01/2017 9:43 pm REASON FOR STUDY: right thigh swelling E08.3219 DIABETES WITH MILD NONP RTNOP WITH MACULAR EDEMA, U E08.22 DIABETES DUE TO UNDRL COND W DIABETIC CHRONIC KIDNEY COMPARISON: None. TECHNIQUE: Dynamic and static cloud scale and color images acquired of the right leg venous system. S elected spectral images acquired with additional compression and augmentation maneuvers. The contrala teral common femoral vein and saphenofemoral junction were also imaged. Images stored on PACS. LIMITATIONS: None. FINDINGS: COMMON FEMORAL: Normal phasicity, compression and augmentation. No visualized echogenic ma terial on cloud scale. No defects on color images. FEMORAL: Normal compression and augmentation. No visualized echogenic material on cloud scale. No defe cts on color images. POPLITEAL: Normal compression, augmentation. No visualized echogenic material on cloud scale. No defec ts on color images. CALF VESSELS: Normal compression, augmentation. No visualized echogenic material on cloud scale. No de fects on color images. GSV and SSV: Normal compression, augmentation. No visualized echogenic material on cloud scale. No def ects on color images. ANY DEEP VENOUS INSUFFICIENCY: Not evaluated. ANY EVIDENCE OF POPLITEAL CYST: No. OTHER: No other significant finding. CONTRALATERAL COMMON FEMORAL VEIN AND SAPHENOFEMORAL JUNCTION: Normal phasicity, compression and augmentation. No visualized echogenic material on cloud scale. No de fects on color images. IMPRESSION: NO EVIDENCE DVT OR SVT IN THE RIGHT LEG. TECHNICAL DOCUMENTATION: JOB ID: [id number] [employer]- All Rights Reserved
[2017-03-01] MEDS: ACETAMINOPHEN 325 MG TABLET PO PRN (22:08)
[2017-03-01] MEDS: MIRTAZAPINE 15 MG TABLET PO SCH (22:09)
[2017-03-02] MEDS: HEPARIN SOD (PORCINE) 5,000 UNIT/ML 1 ML SYRINGE SUBCUT SCH ×3 (06:01→21:31)
[2017-03-02] MEDS: HYDRALAZINE HCL 10 MG TABLET PO SCH ×3 (06:01→21:30)
[2017-03-02] MEDS: DOCUSATE SODIUM 100 MG CAPSULE PO SCH ×2 (09:09→17:16)
[2017-03-02] MEDS: ASPIRIN 325 MG TABLET PO SCH (09:09)
[2017-03-02] MEDS: ACETAMINOPHEN 325 MG TABLET PO PRN (09:09)
[2017-03-02] MEDS: TAMSULOSIN HCL 0.4 MG CAP.SR.24H PO SCH (17:16)
--- NOTE | 2017-03-02 17:33 | PDOC PROGRESS REPORT ---
Subjective Progress Note for:: 03/02/17 Subjective:: Patient's daughter states that patient ate small amount of her tray. Had to be medicated because of pain. Still no wanting to have an permanent IV access. ROS Unable to obtain since sedated All significant laboratories and diagnostics have been reviewed Reason For Visit: STU,HYPONATREMIA Physical Exam Vital Signs: Temp Pulse Resp BP Pulse Ox 98.6 F 107 H 17 118/57 L 95 03/02/17 03:18 03/02/17 03:18 03/02/17 03:18 03/02/17 03:18 03/02/17 03:18 Intake & Output 03/01/17 03/02/17 03/03/17 06:59 06:59 06:59 Intake Total 2177 1440 Output Total 400 1500 Balance 1777 -60 Weight 48.6 kg 48.6 kg General appearance: PRESENT: no acute distress, cooperative, thin Head exam: PRESENT: atraumatic, normocephalic Eye exam: PRESENT: EOMI, PERRLA Ear exam: PRESENT: normal external ear exam Mouth exam: PRESENT: moist Neck exam: ABSENT: full ROM, JVD, tenderness Respiratory exam: PRESENT: clear to auscultation mayank Cardiovascular exam: PRESENT: RRR. ABSENT: diastolic murmur, systolic murmur Vascular exam: PRESENT: normal capillary refill Extremities exam: PRESENT: other - Contracted Musculoskeletal exam: PRESENT: other - Bed reading Neurological exam: PRESENT: other - Somnolent Skin exam: PRESENT: pallor Results Laboratory Results: 03/01/17 04:42 03/01/17 04:42 03/02/17 06:48 Creatine Kinase 83 Impressions: Abdomen/Pelvis CT 02/26/17 00:00 IMPRESSION: Massive bladder distention. No hydronephrosis. Chest X-Ray 02/26/17 15:04 IMPRESSION: Chronic lung changes with no acute intracranial pathology. Extremity Ultrasound 03/01/17 00:00 IMPRESSION: SUBCUTANEOUS EDEMA. NO MASSES OR FOCAL FLUID COLLECTIONS. Venous Doppler Study 03/01/17 00:00 IMPRESSION: NO EVIDENCE DVT OR SVT IN THE RIGHT LEG. Assessment & Plan - Diagnosis (1) Diabetes mellitus type 2 in nonobese Is this a current diagnosis for this admission?: Yes Plan: Continue present treatment. A1C good (2) Dehydration Is this a current diagnosis for this admission?: Yes Plan: IV access lost. Surgery consulted for PEG (3) Hypernatremia Is this a current diagnosis for this admission?: Yes Plan: Resolved and now hyponatremic. (4) Leukocytosis Qualifiers: Leukocytosis type: unspecified Qualified Code(s): D72.829 - Elevated white blood cell count, unspecified Is this a current diagnosis for this admission?: Yes Plan: Resolved. Sonogram of the thigh demonstrated fluid buildup. Unable to pursue any further workup due to losing of IV access (5) Renal insufficiency Is this a current diagnosis for this admission?: Yes Plan: Appears to be acute on chronic. There has been worsening. Trend (6) Acute CVA (cerebrovascular accident) Is this a current diagnosis for this admission?: Yes (7) Constipation Qualifiers: Constipation type: unspecified constipation type Qualified Code(s): K59.00 - Constipation, unspecified Is this a current diagnosis for this admission?: Yes Plan: Continue with bowel regimen. (8) Severe malnutrition Is this a current diagnosis for this admission?: Yes Plan: Multifactorial. Continue remeron. Family agreeable for PEG (9) Depression Qualifiers: Depression Type: unspecified Qualified Code(s): F32.9 - Major depressive disorder, single episode, unspecified Is this a current diagnosis for this admission?: Yes Plan: Continue lexapro and remeron (10) Decubital ulcer Qualifiers: Pressure ulcer location: buttock Pressure ulcer stage: stage 2 Laterality : unspecified laterality Qualified Code(s): L89.302 - Pressure ulcer of unspecified buttock, stage 2 Is this a current diagnosis for this admission?: Yes Plan: Appears to be healing well. (11) Urinary retention Is this a current diagnosis for this admission?: Yes Plan: Daughters admit is ongoing. Family requested a galeas unaware increased propensity for urinary tract infection (12) HTN (hypertension) Qualifiers: Hypertension type: essential hypertension Qualified Code(s): I10 - Essential (primary) hypertension Is this a current diagnosis for this admission?: Yes Plan: Continue present management (13) Acute thigh pain Qualifiers: Laterality: right Qualified Code(s): M79.651 - Pain in right thigh Is this a current diagnosis for this admission?: Yes Plan: Discussed with radiologist and recommended to repeat CT of the abdomen and pelvis with IV contrast but unable due to not having IV access. Venous sonogram was negative - Time Time Spent with patient: 15-24 minutes Medications reviewed and adjusted accordingly: Yes Anticipated discharge: Home Within: within 72 hours - Inpatient Certification Based on my medical assessment, after consideration of the patient's comorbidities, presenting symptoms, or acuity I expect that the services needed warrant INPATIENT care.: Yes I certify that my determination is in accordance with my understanding of Medicare's requirements for reasonable and necessary INPATIENT services [42 CFR 412.3e].: Yes Medical Necessity: Need for Surgery
--- NOTE | 2017-03-02 21:16 | PDOC CONSULTATION ---
Consultation Consult Date: 03/02/17 Consult reason:: PEG tube placement History of Present Illness Admission Date/PCP: 02/26/17 17:33 KARISSA ATKINSON MD Patient complains of: poor po intake History of Present Illness: History of CVA. Now with poor po intake and family requests PEG tube placement. Past Medical History Cardiac Medical History: Reports: Hyperlipidema, Hypertension Pulmonary Medical History: Reports: None EENT Medical History: Reports: None Neurological Medical History: Reports: Ischemic CVA Endocrine Medical History: Reports: Diabetes Mellitus Type 2 Malignancy Medical History: Reports: None GI Medical History: Reports: None Musculoskeltal Medical History: Reports: None Psychiatric Medical History: Reports: Depression Traumatic Medical History: Reports: None Hematology: Reports: None Infectious Medical History: Reports: None Past Surgical History Past Surgical History: Reports: None Social History Lives with: Family Smoking Status: Former Smoker Cigarettes Packs Per Day: 1 Number of Years Smokin Last Time Smoked: 03/24/2001 Frequency of Alcohol Use: None Hx Recreational Drug Use: Yes Drugs: None Hx Prescription Drug Abuse: No - Advance Directive Resuscitation Status: Full Code Family History Family History: Hypertension Parental Family History Reviewed: Yes Children Family History Reviewed: No Sibling(s) Family History Reviewed.: No Medication/Allergy Home Medications: Amlodipine/Valsartan/Hcthiazid [Jcibq-Qbwdy-Pvjy 10-320-25 mg] 1 tab PO DAILY Aspirin [Aspirin 81 mg Chewable Tablet] 81 mg PO DAILY 02/26/17 Atorvastatin Calcium [Lipitor 40 mg Tablet] 40 mg PO QHS 02/26/17 Escitalopram Oxalate [Lexapro 10 mg Tablet] 10 mg PO DAILYP PRN 02/26/17 Insulin Detemir [Levemir Flextouch] 0 unit SQ .SLIDING SCALE 02/26/17 Sitagliptin Phos/Metformin HCl [Janumet 50-500 mg Tablet] 1 tab PO BID 02/26/17 Allergies/Adverse Reactions: No Known Allergies Allergy (Verified 02/18/17 12:31) Review of Systems Constitutional: PRESENT: anorexia, weakness, weight loss Ears: PRESENT: other - decreased hearing and vision Cardiovascular: PRESENT: other - no chest pain Respiratory: PRESENT: other - no cough Gastrointestinal: PRESENT: other - no N/V Musculoskeletal: PRESENT: muscle weakness, other - 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 Integumentary: PRESENT: other - no rash Neurological: PRESENT: weakness, other - ledt side paralyzed Hematologic/Lymphatic: PRESENT: other - no easy bruisability Physical Exam Vital Signs: Temp Pulse Resp BP Pulse Ox 98.7 F 105 H 18 131/66 H 97 03/02/17 19:15 03/02/17 19:15 03/02/17 19:15 03/02/17 19:15 03/02/17 19:15 Intake & Output 03/01/17 03/02/17 03/03/17 06:59 06:59 06:59 Intake Total 2177 1440 220 Output Total 400 1500 337 Balance 1777 -60 -117 Weight 48.6 kg 48.6 kg General appearance: PRESENT: cooperative, hard of hearing, thin Head exam: PRESENT: atraumatic Eye exam: PRESENT: conjunctiva pink Mouth exam: PRESENT: moist, tongue midline Neck exam: PRESENT: other - decreased neck mobility Respiratory exam: PRESENT: clear to auscultation mayank Cardiovascular exam: PRESENT: RRR Pulses: PRESENT: normal radial pulses Vascular exam: PRESENT: normal capillary refill GI/Abdominal exam: PRESENT: soft Rectal exam: PRESENT: deferred Gentrourinary exam: PRESENT: other - urinary retention Extremities exam: PRESENT: other - paralyzed left side Neurological exam: PRESENT: awake Psychiatric exam: PRESENT: appropriate affect Skin exam: PRESENT: normal color, warm Results Laboratory Results: 03/01/17 04:42 03/01/17 04:42 03/02/17 06:48 Creatine Kinase 83 Impressions: Abdomen/Pelvis CT 02/26/17 00:00 IMPRESSION: Massive bladder distention. No hydronephrosis. Chest X-Ray 02/26/17 15:04 IMPRESSION: Chronic lung changes with no acute intracranial pathology. Extremity Ultrasound 03/01/17 00:00 IMPRESSION: SUBCUTANEOUS EDEMA. NO MASSES OR FOCAL FLUID COLLECTIONS. Venous Doppler Study 03/01/17 00:00 IMPRESSION: NO EVIDENCE DVT OR SVT IN THE RIGHT LEG. Assessment & Plan - Time Time Spent: 30 to 50 Minutes - Inpatient Certification Medical Necessity: Failure to Improve With Outpatient Therapy, Significant Comorbidiites Make Outpatient Treatment Too Risky, Need For IV Fluids, Need for Surgery, Risk of Complication if Not Cared For in Hospital - Plan Summary Plan Summary: Will need a central line for CT scan procedure but family hesitant to give consent after risks explained. they are still thinking about it PEG tube placement tomorrow by Dr Mohan
[2017-03-02] MEDS: MIRTAZAPINE 15 MG TABLET PO SCH (21:31)
[2017-03-02] MEDS: INSULIN LISPRO 100 UNIT/ML 3 ML VIAL SUBCUT PRN (22:22)
[2017-03-03] MEDS: HEPARIN SOD (PORCINE) 5,000 UNIT/ML 1 ML SYRINGE SUBCUT SCH ×3 (05:52→21:23)
[2017-03-03] MEDS: HYDRALAZINE HCL 10 MG TABLET PO SCH ×3 (06:05→21:22)
[2017-03-03 07:43] LABS: ABSOLUTE BASOPHILS # (AUTO) 0.1 10^3/uL (0.0-0.2); ABSOLUTE EOSINOPHILS # (AUTO) 0.1 10^3/uL (0.0-0.6); ABSOLUTE LYMPHOCYTES (AUTO) 1.1 10^3/uL (0.5-4.7); ABSOLUTE MONOCYTES (AUTO) 0.7 10^3/uL (0.1-1.4); ABSOLUTE NEUT (AUTO) 7.4 10^3/uL (1.7-8.2); BASOPHILS % (AUTO) 0.9 % (0-2); EOSINOPHILS % (AUTO) 1.2 % (0-6); HEMATOCRIT 25.7 % (36.0-47.0); HEMOGLOBIN 8.5 g/dL (12.0-15.5); HGB HCT DIFFERENCE -0.2; MEAN CORPUSCULAR HEMOGLOBIN 27.9 pg (27.0-33.4); MEAN CORPUSCULAR HGB CONC 33.2 g/dL (32.0-36.0); MEAN CORPUSCULAR VOLUME 84 fl (80-97); MONOCYTES % (AUTO) 7.8 % (3-13); RED BLOOD COUNT 3.05 10^6/uL (3.72-5.28); RED CELL DISTRIBUTION WIDTH 15.2 % (11.5-14.0); SEGMENTED NEUTROPHILS % (AUTO) 78.1 % (42-78); WHITE BLOOD COUNT 9.5 10^3/uL (4.0-10.5)
[2017-03-03 07:50] LABS: ALANINE AMINOTRANSFERASE 29 U/L (9-52); ALBUMIN 2.3 g/dL (3.5-5.0); ALKALINE PHOSPHATASE 96 U/L (38-126); ANION GAP 9 (5-19); ASPARTATE AMINO TRANSFERASE 17 U/L (14-36); BILIRUBIN,DIRECT 0.3 mg/dL (0.0-0.4); BILIRUBIN,TOTAL 0.3 mg/dL (0.2-1.3); BLOOD UREA NITROGEN 21 mg/dL (7-20); CARBON DIOXIDE 18 mmol/L (22-30); CHLORIDE 114 mmol/L (98-107); CREATININE RESULT 1.02 mg/dL (0.52-1.25); GLUCOSE 127 mg/dL (75-110); POTASSIUM 4.4 mmol/L (3.6-5.0); TOTAL PROTEIN 5.1 g/dL (6.3-8.2)
[2017-03-03] MEDS: DOCUSATE SODIUM 100 MG CAPSULE PO SCH ×2 (10:11→17:22)
[2017-03-03] MEDS: ASPIRIN 325 MG TABLET PO SCH (10:11)
[2017-03-03] MEDS ORDERED: ZOLPIDEM TARTRATE 5 MG TABLET PO PRN (14:00)
[2017-03-03] MEDS ORDERED: ONDANSETRON HCL INJ/PF 4 MG/2 ML SDV IV PRN (14:00)
--- NOTE | 2017-03-03 14:30 | PDOC PROGRESS REPORT ---
Subjective Progress Note for:: 03/03/17 Subjective:: Patient was kept n.p.o. for placement of PEG tube today. Dr. Hanson expressed his concern about the placement of PEG tube in this chronically debilitated and contracted patient. He was made aware of family concern and journey during this hospitalization. Strongly agree about his concern. When I had an approach daughter's unexplained my opinion that patient was debilitated and that she had given up. It was my impression the patient appears to be ready to . Interestingly family was ready to hear what I had to say. Offered for patient to be placed on hospice and kept her comfortable. They agree for surgery to be canceled. It is my understanding that patient's son is coming from [place]. ROS Unable to obtain since sedated All significant laboratories and diagnostics have been reviewed Reason For Visit: STU,HYPONATREMIA Physical Exam Vital Signs: Temp Pulse Resp BP Pulse Ox 98.1 F 118 H 20 153/73 H 98 03/02/17 22:57 03/02/17 22:57 03/02/17 22:57 03/02/17 22:57 03/02/17 22:57 Intake & Output 03/02/17 03/03/17 03/04/17 06:59 06:59 06:59 Intake Total 1440 220 Output Total 1500 1637 Balance -60 -1417 Weight 48.6 kg 55.883 kg General appearance: PRESENT: cooperative, thin Head exam: PRESENT: atraumatic, normocephalic Eye exam: PRESENT: EOMI, PERRLA Ear exam: PRESENT: normal external ear exam Mouth exam: PRESENT: moist Neck exam: PRESENT: full ROM. ABSENT: JVD, tenderness Respiratory exam: PRESENT: clear to auscultation mayank. ABSENT: crackles, rhonchi Cardiovascular exam: PRESENT: RRR. ABSENT: diastolic murmur, systolic murmur GI/Abdominal exam: PRESENT: normal bowel sounds, soft. ABSENT: tenderness Extremities exam: ABSENT: joint swelling Neurological exam: PRESENT: alert Psychiatric exam: PRESENT: depressed Results Laboratory Results: 03/02/17 06:48 Creatine Kinase 83 Impressions: Abdomen/Pelvis CT 02/26/17 00:00 IMPRESSION: Massive bladder distention. No hydronephrosis. Chest X-Ray 02/26/17 15:04 IMPRESSION: Chronic lung changes with no acute intracranial pathology. Extremity Ultrasound 03/01/17 00:00 IMPRESSION: SUBCUTANEOUS EDEMA. NO MASSES OR FOCAL FLUID COLLECTIONS. Venous Doppler Study 03/01/17 00:00 IMPRESSION: NO EVIDENCE DVT OR SVT IN THE RIGHT LEG. Assessment & Plan - Diagnosis (1) Diabetes mellitus type 2 in nonobese Is this a current diagnosis for this admission?: Yes Plan: Continue present treatment. A1C good (2) Dehydration Is this a current diagnosis for this admission?: Yes Plan: We will not attempt any further hydration his family agreeable for patient to be primarily on comfort measures (3) Hypernatremia Is this a current diagnosis for this admission?: Yes Plan: Resolved and now hyponatremic. (4) Leukocytosis Qualifiers: Leukocytosis type: unspecified Qualified Code(s): D72.829 - Elevated white blood cell count, unspecified Is this a current diagnosis for this admission?: Yes Plan: Resolved. Sonogram of the thigh demonstrated fluid buildup. Will not pursue any further workup (5) Renal insufficiency Is this a current diagnosis for this admission?: Yes Plan: Appears to be acute on chronic. There has been worsening. (6) Acute CVA (cerebrovascular accident) Is this a current diagnosis for this admission?: No Plan: Patient has significant disability after having a stroke several years ago which is complicated by contractures and depression. Has a very supportive family and they go to extremes to protect their mother since want to avoid at all cost to inflict pain on her (7) Constipation Qualifiers: Constipation type: unspecified constipation type Qualified Code(s): K59.00 - Constipation, unspecified Is this a current diagnosis for this admission?: Yes Plan: Continue with bowel regimen. (8) Severe malnutrition Is this a current diagnosis for this admission?: Yes Plan: Multifactorial. Continue remeron. Family agreeable for hospice (9) Depression Qualifiers: Depression Type: unspecified Qualified Code(s): F32.9 - Major depressive disorder, single episode, unspecified Is this a current diagnosis for this admission?: Yes Plan: Continue lexapro and remeron (10) Decubital ulcer Qualifiers: Pressure ulcer location: buttock Pressure ulcer stage: stage 2 Laterality : unspecified laterality Qualified Code(s): L89.302 - Pressure ulcer of unspecified buttock, stage 2 Is this a current diagnosis for this admission?: Yes Plan: Appears to be healing well. (11) Urinary retention Is this a current diagnosis for this admission?: Yes Plan: Daughters admit is ongoing. A new Aguilar and family is aware of increased propensity of infection. (12) HTN (hypertension) Qualifiers: Hypertension type: essential hypertension Qualified Code(s): I10 - Essential (primary) hypertension Is this a current diagnosis for this admission?: Yes Plan: Continue present management (13) Acute thigh pain Qualifiers: Laterality: right Qualified Code(s): M79.651 - Pain in right thigh Is this a current diagnosis for this admission?: Yes Plan: We will not pursue any further workup since family amenable for patient to go on hospice. I agree with Dr. Hung the patient is too debilitated to undergo any surgical procedure if any abnormal findings if repeating CT of the abdomen and pelvis - Time Time Spent with patient: 15-24 minutes Medications reviewed and adjusted accordingly: Yes Anticipated discharge: Hospice Within: within 24 hours - Inpatient Certification Based on my medical assessment, after consideration of the patient's comorbidities, presenting symptoms, or acuity I expect that the services needed warrant INPATIENT care.: Yes I certify that my determination is in accordance with my understanding of Medicare's requirements for reasonable and necessary INPATIENT services [42 CFR 412.3e].: Yes Medical Necessity: Need for Pain Control
[2017-03-03] MEDS: TAMSULOSIN HCL 0.4 MG CAP.SR.24H PO SCH (17:22)
--- NOTE | 2017-03-03 20:13 | CONSULTATION REPORT E ---
Consultation Report NAME: WALLY CONKLIN : 1945 AGE: 72Y DATE: 03/03/2017 ROOM: 416 A TO: DANETTE THOMAS M.D. FROM: MARLIN HUGHES M.D. Requesting Physician REFERRING PHYSICIAN: The patient seen at the request of the primary care service. HISTORY OF THE PRESENT ILLNESS: The patient is a 72-year-old cachectic, debilitated, status post CVA, -[place] female hospitalized for failure to thrive. Please see her past medical and surgical history and interval hospital course for complete records. PHYSICAL EXAMINATION: GENERAL: The patient does arouse and track with her eyes and mumble. MUSCULOSKELETAL: She is contracted. EXTREMITIES: Moderately edematous. LUNGS: Rhonchi bilaterally. HEART: Without murmur or gallop. ABDOMEN: Is examined. There are no peritoneal signs, no rigidity. Of note, because of contracture, great force was required to expose the abdomen. EXTREMITIES: The patient has an IV in her left hand. IMPRESSION: A 72-year-old -[place] female with advanced dementia, chronic debilitated state and malnutrition, and chronic contracture; consultation for PEG tube placement requested. DISCUSSION: I spent a fair amount of time speaking with the patient's daughter at bedside this morning about the rational for feeding tube such as a PEG, the mechanics of PEG insertion, and the expectations for managing a PEG as well as possible complications. Initially the patient's daughter consented to the procedure, but sometime later she withdrew that consent. Therefore, surgery will not engage in PEG tube insertion today. The patient and the patient's family expectations may need updating; I discussed the patient's current code status, and consideration for DNR with the hospitalist service. Apparently the family has been approached about DNR and they have been extremely reluctant to pursue that. We will be available for consultation on an as needed basis. DICTATING PHYSICIAN: DANETTE THOMAS M.D. [id number] PHY#: [id number] [id number] JOB#: [id number] ACCT: [id number] cc:DANETTE THOMAS M.D. > MTDD
[2017-03-03] MEDS: INSULIN LISPRO 100 UNIT/ML 3 ML VIAL SUBCUT PRN (21:24)
[2017-03-03] MEDS: MIRTAZAPINE 15 MG TABLET PO SCH (21:32)
[2017-03-04] MEDS: HEPARIN SOD (PORCINE) 5,000 UNIT/ML 1 ML SYRINGE SUBCUT SCH ×3 (06:28→21:25)
[2017-03-04] MEDS: HYDRALAZINE HCL 10 MG TABLET PO SCH ×3 (06:29→21:22)
[2017-03-04] MEDS: ASPIRIN 325 MG TABLET PO SCH (09:42)
[2017-03-04] MEDS: DOCUSATE SODIUM 100 MG CAPSULE PO SCH ×2 (09:42→17:31)
[2017-03-04] MEDS: INSULIN LISPRO 100 UNIT/ML 3 ML VIAL SUBCUT PRN ×2 (17:31→21:22)
[2017-03-04] MEDS: TAMSULOSIN HCL 0.4 MG CAP.SR.24H PO SCH (17:31)
[2017-03-04] MEDS: MIRTAZAPINE 15 MG TABLET PO SCH (21:26)
[2017-03-05] MEDS: HYDRALAZINE HCL 10 MG TABLET PO SCH (05:49)
[2017-03-05] MEDS: HEPARIN SOD (PORCINE) 5,000 UNIT/ML 1 ML SYRINGE SUBCUT SCH (05:49)
[2017-03-05] MEDS: ASPIRIN 325 MG TABLET PO SCH (09:22)
[2017-03-05] MEDS: DOCUSATE SODIUM 100 MG CAPSULE PO SCH (09:22)
[2017-03-05] MEDS ORDERED: METOPROLOL SUCCINATE 25 MG TAB.SR.24H PO SCH (09:45)
[2017-03-05] MEDS ORDERED: METOPROLOL TARTRATE 25 MG TABLET PO ONE (11:30)
[2017-03-05 11:43] VITALS: BP 137/76
[2017-03-05] MEDS ORDERED: METOPROLOL TARTRATE 25 MG TABLET PO SCH (22:00)
--- NOTE | 2017-03-06 11:43 | PDOC PROGRESS REPORT ---
Subjective Progress Note for:: 03/04/17 Subjective:: Patient is pretty much unchanged from the day before. Did have a long discussion with family regarding her current status. Explained to the family that patient more than likely has vascular neurocognitive disorder or vascular dementia with superimposed dementia which would explain her fluctuating behavior. Also explained to them if she does not fact have dementia there may come a time where she is unable to eat. Explained to them that I agreed that a feeding tube may not be appropriate at this time especially if patient is eating 100% of her meals. At this time patient is definitely appropriate for palliative care which family is agreeable to. Reason For Visit: STU,HYPONATREMIA Physical Exam Vital Signs: Temp Pulse Resp BP Pulse Ox 98.6 F 122 H 16 150/79 H 98 03/04/17 19:47 03/04/17 19:47 03/04/17 19:47 03/04/17 19:47 03/04/17 19:47 Intake & Output General appearance: PRESENT: no acute distress, well-nourished Head exam: PRESENT: normocephalic Eye exam: PRESENT: EOMI. ABSENT: scleral icterus Ear exam: PRESENT: normal external ear exam Mouth exam: PRESENT: moist Neck exam: ABSENT: carotid bruit, JVD, lymphadenopathy, thyromegaly Respiratory exam: PRESENT: clear to auscultation mayank. ABSENT: rales, rhonchi, wheezes Cardiovascular exam: PRESENT: RRR. ABSENT: diastolic murmur, rubs, systolic murmur GI/Abdominal exam: PRESENT: normal bowel sounds, soft. ABSENT: distended, guarding, mass, organolmegaly, rebound, tenderness Rectal exam: PRESENT: deferred Gentrourinary exam: PRESENT: indwelling catheter Extremities exam: PRESENT: other - Contracted. ABSENT: calf tenderness, clubbing, pedal edema Neurological exam: PRESENT: alert, awake. ABSENT: motor sensory deficit Psychiatric exam: PRESENT: flat affect. ABSENT: homicidal ideation, suicidal ideation Skin exam: PRESENT: dry, intact, warm, other - Dressing on patient's bottom. Otherwise skin intact.. ABSENT: cyanosis, rash Results Laboratory Results: 03/03/17 06:45 03/03/17 06:45 03/02/17 06:48 Creatine Kinase 83 Impressions: Abdomen/Pelvis CT 02/26/17 00:00 IMPRESSION: Massive bladder distention. No hydronephrosis. Chest X-Ray 02/26/17 15:04 IMPRESSION: Chronic lung changes with no acute intracranial pathology. Extremity Ultrasound 03/01/17 00:00 IMPRESSION: SUBCUTANEOUS EDEMA. NO MASSES OR FOCAL FLUID COLLECTIONS. Venous Doppler Study 03/01/17 00:00 IMPRESSION: NO EVIDENCE DVT OR SVT IN THE RIGHT LEG. Assessment & Plan - Diagnosis (1) Dehydration Is this a current diagnosis for this admission?: Yes Plan: Resolved, but likely due to decreased p.o. intake along with the use of hydrochlorothiazide. Patient presented with acute renal failure. Patient creatinine trended up to 1.34 and then back down to 1.02 after fluid hydration. (2) History of CVA (cerebrovascular accident) Plan: Patient has a past history of stroke with left-sided hemiparesis and has been bedbound over the last year or so. Patient appears to have vascular neurocognitive disorder or vascular dementia may explain her fluctuation in behavior. Plan to them that patient may have progressive decline in her cognitive abilities which may eventually affect her ability to swallow and put her at risk for aspiration. Based on this family was agreeable to palliative care. Patient will be discharged home tomorrow with home health and palliative care. (3) Acute thigh pain Qualifiers: Laterality: right Qualified Code(s): M79.651 - Pain in right thigh Is this a current diagnosis for this admission?: Yes Plan: She had ultrasounds completed which showed some fluid in the area but no need for intervention at this time. This has since resolved. (4) Constipation Qualifiers: Constipation type: unspecified constipation type Qualified Code(s): K59.00 - Constipation, unspecified Is this a current diagnosis for this admission?: Yes Plan: He did have bowel movement while she was here on 03/02/2017 patient was continued on a bowel regimen. Patient daughter states that prune juice usually helps. (5) Decubital ulcer Qualifiers: Pressure ulcer location: buttock Pressure ulcer stage: stage 2 Laterality : unspecified laterality Qualified Code(s): L89.302 - Pressure ulcer of unspecified buttock, stage 2 Is this a current diagnosis for this admission?: Yes Plan: Appears to be healing. Continue wound care. (6) Depression Qualifiers: Depression Type: unspecified Qualified Code(s): F32.9 - Major depressive disorder, single episode, unspecified Is this a current diagnosis for this admission?: Yes Plan: Patient currently on Remeron. (7) Diabetes mellitus type 2 in nonobese Is this a current diagnosis for this admission?: Yes Plan: La sliding scale insulin and monitor. Patient's blood glucoses have been fairly stable fluctuating between the 100s and 200s. A1c 6.1. (8) Hypernatremia Is this a current diagnosis for this admission?: Yes Plan: Hyponatremia most likely due to dehydration. This has since resolved patient last sodium was 141.0. (9) Leukocytosis Qualifiers: Leukocytosis type: unspecified Qualified Code(s): D72.829 - Elevated white blood cell count, unspecified Is this a current diagnosis for this admission?: Yes Plan: She had leukocytosis however this could have been due to hemoconcentration as patient was dehydrated on presentation. Patient leukocytosis has since resolved without any initiation of antibiotics. (10) Renal insufficiency Is this a current diagnosis for this admission?: Yes Plan: Insufficiency most likely due to dehydration and the use of hydrochlorothiazide and valsartan. Patient also may have been having some ureteric nares with retention and or obstruction failure. Patient has a Aguilar in place. Patient urine renal renal function is now improved. (11) Severe malnutrition Is this a current diagnosis for this admission?: Yes Plan: Patient having poor oral intake. Albumin 2.3 and total protein 5.1. He has been eating about 100% of her meals for the last day or so. Patient daughter states that her oral intake fluctuates from time to time. Patient may benefit from dietary supplementation with Glucerna. (12) Urinary retention Is this a current diagnosis for this admission?: Yes Plan: Sounds as if patient may have neurogenic bladder the result of her diabetes. Aguilar in place. Patient will be discharged with a indwelling Aguilar and will have Aguilar care provided at home. - Time Time Spent with patient: Less than 15 minutes Anticipated discharge: Home with Homehealth Within: within 24 hours - Inpatient Certification Medical Necessity: Significant Comorbidiites Make Outpatient Treatment Too Risky
--- NOTE | 2017-03-06 12:02 | PDOC DISCHARGE SUMMARY ---
General - Admit/Disc Date/PCP Admission Date/Primary Care Provider: 02/26/17 17:33 KARISSA ATKINSON MD Discharge Date: 03/05/17 - Discharge Diagnosis (1) Dehydration Is this a current diagnosis for this admission?: Yes (3) Acute thigh pain Is this a current diagnosis for this admission?: Yes (4) Constipation Is this a current diagnosis for this admission?: Yes (5) Decubital ulcer Is this a current diagnosis for this admission?: Yes (6) Depression Is this a current diagnosis for this admission?: Yes (7) Diabetes mellitus type 2 in nonobese Is this a current diagnosis for this admission?: Yes (8) Hypernatremia Is this a current diagnosis for this admission?: Yes (9) Leukocytosis Is this a current diagnosis for this admission?: Yes (10) Renal insufficiency Is this a current diagnosis for this admission?: Yes (11) Severe malnutrition Is this a current diagnosis for this admission?: Yes (12) Urinary retention Is this a current diagnosis for this admission?: Yes - Additional Information Resuscitation Status: Full Code Discharge Diet: As Tolerated Home Medications: Aspirin [Aspirin 81 mg Chewable Tablet] 81 mg PO DAILY 02/26/17 Atorvastatin Calcium [Lipitor 40 mg Tablet] 40 mg PO QHS 02/26/17 Escitalopram Oxalate [Lexapro 10 mg Tablet] 10 mg PO DAILYP PRN 02/26/17 Insulin Detemir [Levemir Flextouch] 0 unit SQ .SLIDING SCALE 02/26/17 Metoprolol Tartrate [Lopressor 25 mg Tablet] 12.5 mg PO Q12 #30 tablet 03/05/17 Mirtazapine [Remeron 15 mg Tablet] 7.5 mg PO QHS #30 tablet 03/05/17 Oxycodone HCl/Acetaminophen [Percocet 5-325 mg Tablet] 1 tab PO Q6HP PRN #8 tablet 03/05/17 History of Present Illness History of Present Illness: WALLY CONKLIN is a 72 year old female brought in by the family with complaint of poor oral intake weight loss. Patient was also noted to have hyponatremia and mild hyperkalemia. Please refer to H&P dictated by Dr. Schmidt for complete details. Hospital Course Hospital Course: Patient brought in by her family for weakness and decreased p.o. intake and weight loss. Patient was evaluated and found to have severe malnutrition with hypoalbuminemia and hypoproteinemia. Patient was placed on Remeron. Patient started eating a little bit better. There was talk about a feeding tube however after patient was evaluated by surgery he was recommended that patient not have a feeding tube placed due to her anatomy as patient is severely contracted. Family is agreeable and want to continue feeding patient as long as she can eat. Explained to patient family that she may have vascular dementia and or Alzheimer's disease and that her ability to eat may worsen and at some point she may stop eating. Based on this patient was made palliative. Patient hyponatremia was corrected with IV fluids. This was thought to be secondary to dehydration as a result of poor oral intake. Patient acute renal failure resulted from dehydration and the use of valsartan and hydrochlorothiazide. Patient may have been having some urinary retention and/ or obstruction which could have been causing her acute renal failure. Patient did have a Aguilar placed was her renal function did improve. Per the family patient has difficulty voiding. There is some concern that patient may have neurogenic bladder as a result of her long-standing diabetes. Patient Aguilar was placed and left in place. Explained to family that this is part of palliative care and that a nurse will come out to provide Aguilar care. Also explained to daughter that is best that she does not take a schedule oral antihyperglycemic as patient appetite fluctuates from time to time and this puts her at risk for hypoglycemia. Explained to her that she should only use sliding scale insulin after the patient has eaten. Also explained to her for her antihypertensive medications she is on 3 medications Norvasc, valsartan, and hydrochlorothiazide which may not be necessary at this time. Explained to her that the valsartan and hydrochlorothiazide can be harmful especially if the patient is not taking in enough fluids complete. I explained to her that I am discontinuing this medication and only putting her on metoprolol for her tachycardia. Family did request a semi-electric medical bed and stated that they do not have any further needs at this time. She may also benefit from a special mattress as she does have decubitus ulcers which appear to be healing quite well. Patient already has a nurse to come out to provide wound care and they should continue. Depression patient was started on Remeron which will help with her depression and her appetite. Patient leukocytosis on admission may have been due to hemoconcentration as this did subside when she was given fluids. Transportation will be arranged to take the patient home. She is being discharged to home health and palliative care. Physical Exam Vital Signs: Temp Pulse Resp BP Pulse Ox 98.7 F 113 H 18 137/76 H 96 03/05/17 11:39 03/05/17 11:39 03/05/17 11:39 03/05/17 11:39 03/05/17 11:39 Intake & Output 03/05/17 03/06/17 03/07/17 06:59 06:59 06:59 Intake Total 1067 Output Total 900 Balance 167 Weight 56.2 kg General appearance: PRESENT: no acute distress, thin Head exam: PRESENT: normocephalic Eye exam: PRESENT: EOMI. ABSENT: scleral icterus Ear exam: PRESENT: normal external ear exam Mouth exam: PRESENT: moist Neck exam: ABSENT: carotid bruit, JVD, lymphadenopathy, thyromegaly Respiratory exam: PRESENT: clear to auscultation mayank. ABSENT: rales, rhonchi, wheezes Cardiovascular exam: PRESENT: RRR. ABSENT: diastolic murmur, rubs, systolic murmur GI/Abdominal exam: PRESENT: normal bowel sounds, soft. ABSENT: distended, guarding, mass, organolmegaly, rebound, tenderness Rectal exam: PRESENT: deferred Extremities exam: PRESENT: other - severely contracted. ABSENT: calf tenderness , clubbing, pedal edema Neurological exam: PRESENT: alert, awake. ABSENT: motor sensory deficit Psychiatric exam: PRESENT: flat affect. ABSENT: homicidal ideation, suicidal ideation Skin exam: PRESENT: dry, intact, warm, other - She does have dressings on her left buttock in the gluteal fold or at the sacrum. Patient skin is otherwise intact.. ABSENT: cyanosis, rash Results Laboratory Results: 03/03/17 06:45 03/03/17 06:45 03/02/17 06:48 Creatine Kinase 83 Impressions: Abdomen/Pelvis CT 02/26/17 00:00 IMPRESSION: Massive bladder distention. No hydronephrosis. Chest X-Ray 02/26/17 15:04 IMPRESSION: Chronic lung changes with no acute intracranial pathology. Extremity Ultrasound 03/01/17 00:00 IMPRESSION: SUBCUTANEOUS EDEMA. NO MASSES OR FOCAL FLUID COLLECTIONS. Venous Doppler Study 03/01/17 00:00 IMPRESSION: NO EVIDENCE DVT OR SVT IN THE RIGHT LEG. Plan Time Spent: Greater than 30 Minutes
== END 2017-03-05 13:06 | disposition home health service (06) | DRG 682 ==
LOC: ER 12:35 → OBSVTOIN 17:33 → EH 17:33 → 4W 02-27
PROVIDERS: ADMIT Family Medicine; ATTEND Family Medicine
DX: N17.9 Acute kidney failure, unspecified (principal); E43 Unspecified severe protein-calorie malnutrition; E87.1 Hypo-osmolality and hyponatremia; I69.354 Hemiplegia and hemiparesis following cerebral infarction affecting left non-dominant side; E86.0 Dehydration; M79.651 Pain in right thigh; K59.00 Constipation, unspecified; L89.302 Pressure ulcer of unspecified buttock, stage 2; F32.9 Major depressive disorder, single episode, unspecified; E11.9 Type 2 diabetes mellitus without complications; Z68.22 Body mass index [BMI] 22.0-22.9, adult; D72.829 Elevated white blood cell count, unspecified; E87.5 Hyperkalemia; Z51.5 Encounter for palliative care; E78.5 Hyperlipidemia, unspecified; I12.9 Hypertensive chronic kidney disease with stage 1 through stage 4 chronic kidney disease, or unspecified chronic kidney disease; N18.3 Chronic kidney disease, stage 3 (moderate); R33.9 Retention of urine, unspecified; Z74.01 Bed confinement status; Z53.09 Procedure and treatment not carried out because of other contraindication; Z79.82 Long term (current) use of aspirin; Z79.4 Long term (current) use of insulin; Z79.899 Other long term (current) drug therapy; Z87.891 Personal history of nicotine dependence; Z82.49 Family history of ischemic heart disease and other diseases of the circulatory system
CPT/HCPCS: 36415; 51701; 71010; 74177; 76881; 80048; 80053; 81001; 82550; 82962; 83036; 83735; 85025; 85652; 86140; 93971; 96360; 96361; 99285; G8996-GN; G8997-GN; G8998-GN; J1644; J1815; J2270; J2765; J3490; J7030; J7040; J7060